=== PATIENT | male | born 1950 | race Caucasian/White ===

== ENCOUNTER → 2016-12-17 | Outpatient (CLI) | payer MEDICARE ==
--- NOTE | 2016-12-17 16:34 | US ---
EXAMINATION TYPE: US scrotum with doppler. Grayscale and color Doppler Duplex imaging performed of t jewel scrotum. DATE OF EXAM: 12/17/2016 4:06 PM COMPARISON: NONE CLINICAL HISTORY: Scrotum Pain N50.82. EXAM MEASUREMENTS: TESTICLES: Right Testicle: 3.5 x 2.7 x 2.8 cm Left Testicle: not identified EPIDIDYMIS HEAD: At area of right epididymis is a fluid collection measuring 4.4 x 2.2 x 3.6cm. Left not visualized Doppler performed to assess for testicular vascularity; good right color flow and waveforms are seen. There is no evidence of testicular torsion on right. Patient has extensive swelling. Scrotal sac is the size of a cantaloup. Multiple probes used to maryam w sac in its entirety. No left testicle identified. On left side is a large complex area difficult to assess with ultrasoun d. No movement with valsalva maneuver. IMPRESSION: 1. Extensive scrotal sac swelling with large complex area identified within the region of the left sc rotal sac. Underlying tumoral mass is not excluded versus infectious process. Large right-sided epidi dymal cystic lesion.
== END | disposition home or self-care (01) ==
LOC: RADUSWWP 15:30
PROVIDERS: ATTEND Family Medicine
DX: N50.89 Other specified disorders of the male genital organs (principal); N50.3 Cyst of epididymis; N50.82 Scrotal pain
CPT/HCPCS: 76870; 93975

== ENCOUNTER 2017-03-09 07:35 | Day surgery (SDC) | payer MEDICARE ==
[2017-03-02 14:25] VITALS: BMI 30.1
[~2017-03-09 07:35] MED LIST: DEXAMETHASONE SOD PHOSPHATE 10 MG/ML 1 ML VIAL IV ONE; HEPARIN SODIUM,PORCINE 5,000 UNIT/ML 1 ML VIAL SQ ONE; LACTATED RINGERS 1,000 ML IV SCH; LIDOCAINE 1% 20 ML VIAL (10MG/ML) FOR IV START INTRADERMA PRN; ONDANSETRON 4 MG/2 ML VIAL IVP ONE; SCOPOLAMINE 1.5MG/72HR PATCH TRANSDERM ONE; ceFAZolin 2 GM in SODIUM CHLORIDE 0.9% 100 ML IVPB ONE
--- NOTE | 2017-03-09 09:00 | P.GSHP ---
History of Present Illness H&P Date: 03/09/17 Chief Complaint: Incarcerated left inguinal hernia This a C6-year-old male who presents today for open repair of incarcerated left femoral hernia. Patient's had the hernia for approximately 10 years. Patient states hernias a large in size. He has some pain in the left groin. Past Medical History Past Medical History: Hypertension Additional Past Medical History / Comment(s): Current left inguinal hernia, left testicle swelling and back pain and sore throat. Pt states had chest pain last middle of last week but none since. States he did not see a Dr regarding the pain, denies any previous chest pain or heart problems. Advised to go to nearest ER or call 911 if he has chest pain again. History of Any Multi-Drug Resistant Organisms: None Reported Past Surgical History: Hernia Repair, Tonsillectomy Additional Past Surgical History / Comment(s): Left eye surgery. Additional Past Anesthesia/Blood Transfusion Reaction / Comment(s): States took a long time to wake up after last surgery. Past Psychological History: Anxiety Smoking Status: Former smoker Past Alcohol Use History: None Reported Additional Past Alcohol Use History / Comment(s): Smoked 3 PPD from [id number]. Past Drug Use History: None Reported - Past Family History Mother Family Medical History: Unable to Obtain Medications and Allergies Home Medications Medication Instructions Recorded Confirmed Type Doxazosin [Cardura] 2 mg PO HS 07/10/16 03/09/17 History Enalapril [Vasotec] 20 mg PO BID 07/10/16 03/09/17 History HYDROcodone/APAP 5-325MG [[place] 1 tab PO DAILY PRN 07/10/16 03/09/17 History 5-325] LORazepam [Ativan] 0.5 mg PO DAILY PRN 07/10/16 03/09/17 History Mylanta 30 ml PO BID PRN 03/02/17 03/09/17 History guaiFENesin SYRUP 100MG/5ML 0 mg PO DAILY PRN 03/02/17 03/09/17 History [Robitussin] Allergies Allergy/AdvReac Type Severity Reaction Status Date / Time No Known Allergies Allergy Unverified 03/09/17 08:08 Surgical - Exam Vital Signs Temp Pulse Resp BP Pulse Ox 97.9 F 89 16 129/83 95 03/09/17 08:13 03/09/17 08:13 03/09/17 08:13 03/09/17 08:13 03/09/17 08:13 - General well developed, no distress - Eyes PERRL - ENT normal pinna - Neck no masses - Respiratory normal expansion - Cardiovascular Rhythm: regular - Abdomen Abdomen: soft, non tender Hernia: inguinal (Large incarcerated left inguinal hernia) Assessment and Plan Plan: Arch incarcerated left femoral hernia. Patient will undergo repair. The patient's family understands the risk of possible orchiectomy.
[2017-03-09] MEDS ORDERED: PHENYLEPHRINE-0.9% NACL SYG 1 MG/10 ML SYRINGE ONE (09:27)
[2017-03-09] MEDS ORDERED: KETOROLAC 30 MG/ML 1 ML VIAL ONE (09:27)
[2017-03-09] MEDS ORDERED: MIDAZOLAM 2 MG/2 ML VIAL ONE (09:27)
[2017-03-09] MEDS ORDERED: GLYCOPYRROLATE 0.2 MG/ML 2 ML VIAL ONE (09:27)
[2017-03-09] MEDS ORDERED: SUCCINYLCHOLINE CHLORIDE 100 MG/5 ML SYR IV ONE (09:27)
[2017-03-09] MEDS ORDERED: LIDOCAINE 1% INJ 10MG/ML (20 ML MDV) ONE (09:27)
[2017-03-09] MEDS ORDERED: PROPOFOL 10 MG/ML 20 ML VIAL IV ONE (09:27)
[2017-03-09] MEDS ORDERED: fentaNYL (PF) 50 MCG/ML 2 ML AMP ONE (09:27)
[2017-03-09] MEDS ORDERED: ROCURONIUM BROMIDE 10 MG/ML 10 ML VIAL IV ONE (09:27)
[2017-03-09] MEDS ORDERED: NEOSTIGMINE 1 MG/ML 10 ML VIAL ONE (09:27)
[2017-03-09] MEDS ORDERED: BUPIVACAINE (PF) 0.25% 30 ML VIAL SQ ONE (09:46)
[2017-03-09] MEDS ORDERED: LACTATED RINGERS 1,000 ML IV ONE ×2 (10:02→11:08)
--- NOTE | 2017-03-09 10:43 | P.OP ---
Date of Procedure: 03/09/17 Preoperative Diagnosis: Incarcerated left inguinal hernia Postoperative Diagnosis: Incarcerated left inguinal hernia Procedure(s) Performed: Repair of incarcerated left inguinal hernia Left orchiectomy Implants: Anesthesia: GODWINA Surgeon: Abilio Tony Estimated Blood Loss (ml): 10 Pathology: other (Left testicle) Condition: stable Disposition: PACU Indications for Procedure: Operative Findings: Description of Procedure: The patient was placed on the operating table in the supine position. He had a very large incarcerated left femoral hernia. A standard skin incision was made over the left internal ring. Then using blunt and sharp dissection with cautery the fascia was exposed. A julianna in the fascia and made a 15 blade and the fascia was opened with pair Metzenbaum scissors. The hernia was then brought up in the wound. The hernia extended down into the scrotum. The hernia was dissected free from the scrotal sac. At this point due to the very large size of the hernia appears decided perform an orchiectomy. The cord structures were divided off the hernia sac. And then clamped with a Dede clamp and ligated with 0 silk ties. The specimen was then sent to pathology. The transversalis fascia was opened and then the entire hernia sac was placed back into the peritoneal cavity. A piece of ventral light mesh was then fashioned into a mushroom plug and then the plug was placed into the hernia defect area the transverse fascia was closed to the shelving edge of the inguinal ligament using 0 Ethibond suture. The superior mesh was placed over top of the TRAM cells fascia and then the fascia external oblique was then closed using 0 Vicryl suture. There is no bleeding seen. Chloe's fascia was closed with 2-0 Vicryl suture skin was closed interrupted 3-0 Monocryl suture. Dermabond was applied. Patient was sent to recovery in stable condition.
[2017-03-09] MEDS ORDERED: ONDANSETRON 4 MG/2 ML VIAL IVP ONE (10:58)
[2017-03-09 11:00] VITALS: TEMP 97
[2017-03-09] MEDS: HYDROmorphone 1 MG/ML 1 ML SYRINGE IVP PRN ×4 (11:01→11:39)
[2017-03-09 11:10] VITALS: RESP 16
[2017-03-09] MEDS ORDERED: HYDROcodone/APAP 7.5-325MG 1 EACH TAB PO ONE (12:20)
[2017-03-09 13:42] VITALS: BP 108/64; PULSE 88
== END 2017-03-09 13:59 | disposition home or self-care (01) ==
LOC: OR 07:35
PROVIDERS: ATTEND Surgery
DX: K40.30 Unilateral inguinal hernia, with obstruction, without gangrene, not specified as recurrent (principal); I10 Essential (primary) hypertension; F41.9 Anxiety disorder, unspecified; K21.9 Gastro-esophageal reflux disease without esophagitis; Z79.899 Other long term (current) drug therapy; Z87.891 Personal history of nicotine dependence
CPT/HCPCS: 54520; 49507; C1781; J2250; J1644; J1100; J2710; J0690; J2405; J2001; J3010; J1885; J1170; J2370; J0330; J2704

== ENCOUNTER 2020-04-22 13:07 | Inpatient (IN) | payer MEDICARE ==
[2020-04-22] MEDS ORDERED: ACETAMINOPHEN TAB 325 MG TAB PO PRN (13:18)
[2020-04-22] MEDS ORDERED: NALOXONE 0.4 MG/ML 1 ML VIAL IV PRN (13:18)
--- NOTE | 2020-04-22 13:24 | ED ---
General Adult HPI - General Stated complaint: Afib RVR Time Seen by Provider: 04/22/20 13:12 Source: patient, EMS, RN notes reviewed, old records reviewed - History of Present Illness Initial comments: 69-year-old male presenting as transfer from outside facility with new-onset atrial fibrillation with rapid ventricular response. Patient states he was at home, began feeling some palpitations as well as lightheadedness and right lateral chest pain. He presented to an outside emergency department and was found to be in atrial fibrillation with RVR. He has no previous history of CAD or arrhythmia. He was started on heparin and Cardizem and transferred for further evaluation and treatment. Patient has no new complaints time my evaluation. No central chest pain or dyspnea. Denies lower extremity pain or swelling. Denies abdominal pain nausea vomiting. - Related Data Home Medications Medication Instructions Recorded Confirmed Doxazosin [Cardura] 2 mg PO HS 07/10/16 03/09/17 Enalapril [Vasotec] 20 mg PO BID 07/10/16 03/09/17 HYDROcodone/APAP 5-325MG [[place] 1 tab PO DAILY PRN 07/10/16 03/09/17 5-325] LORazepam [Ativan] 0.5 mg PO DAILY PRN 07/10/16 03/09/17 Mylanta 30 ml PO BID PRN 03/02/17 03/09/17 guaiFENesin SYRUP 100MG/5ML 0 mg PO DAILY PRN 03/02/17 03/09/17 [Robitussin] Previous Rx's Medication Instructions Recorded HYDROcodone/APAP 7.5-325MG [[place] 1 each PO Q4H PRN #60 tab 03/09/17 7.5] Allergies Allergy/AdvReac Type Severity Reaction Status Date / Time No Known Allergies Allergy Verified 04/22/20 13:21 Review of Systems ROS Statement: Those systems with pertinent positive or pertinent negative responses have been documented in the HPI. ROS Other: All systems not noted in ROS Statement are negative. Past Medical History Past Medical History: Hypertension Additional Past Medical History / Comment(s): Current left inguinal hernia, left testicle swelling and back pain and sore throat. Pt states had chest pain last middle of last week but none since. States he did not see a Dr regarding the pain, denies any previous chest pain or heart problems. Advised to go to nearest ER or call 911 if he has chest pain again. History of Any Multi-Drug Resistant Organisms: None Reported Past Surgical History: Hernia Repair, Tonsillectomy Additional Past Surgical History / Comment(s): Left eye surgery. Additional Past Anesthesia/Blood Transfusion Reaction / Comment(s): States took a long time to wake up after last surgery. Past Psychological History: Anxiety Past Alcohol Use History: None Reported Additional Past Alcohol Use History / Comment(s): Smoked 3 PPD from [id number]. Past Drug Use History: None Reported - Past Family History Mother Family Medical History: Unable to Obtain General Exam General appearance: alert, in no apparent distress Head exam: Present: atraumatic, normocephalic Eye exam: Present: normal appearance, PERRL Neck exam: Present: normal inspection Respiratory exam: Present: normal lung sounds bilaterally. Absent: respiratory distress, wheezes Cardiovascular Exam: Present: regular rate, normal rhythm GI/Abdominal exam: Present: soft. Absent: distended, tenderness, guarding, rebound Extremities exam: Present: normal inspection, normal capillary refill. Absent: pedal edema Neurological exam: Present: alert, oriented X3, CN II-XII intact. Absent: motor sensory deficit Psychiatric exam: Present: normal affect, normal mood Skin exam: Present: warm, dry, intact. Absent: cyanosis, diaphoretic Course Vital Signs 04/22/20 13:13 Temperature 97.3 F L Pulse Rate 96 Respiratory 18 Rate Blood Pressure 131/83 O2 Sat by Pulse 96 Oximetry EKG Findings - EKG Comments: EKG Findings:: EKG: Sinus rhythm with PVC left axis deviation, rate of 93, WA interval 138, QRS duration 84 and a QTC 455, no ST segment elevation. Medical Decision Making - Medical Decision Making 69-year-old male with new onset atrial fibrillation with RVR. Patient was placed on heparin and Cardizem prior to transfer. He converted to sinus rhythm and remained in sinus rhythm during transport. She has no complaints the time my evaluation. Laboratory testing reviewed from outside facility, patient had a white blood cell count 7, hemoglobin 15.2. Sodium 139, potassium 3.9 creatinine 1.3 troponin was negative. Patient will be admitted to Dr. Man with cardiology on consult. Critical Care Time Critical Care Time: Yes Disposition Clinical Impression: New onset atrial fibrillation, Atrial fibrillation with RVR Disposition: ADMITTED IP TO THIS HOSP Condition: Stable Is patient prescribed a controlled substance at d/c from ED?: No Referrals: Eliseo Man MD [Primary Care Provider] - 1-2 days Decision to Admit Reason: Admit from EC Decision Date: 04/22/20 Decision Time: 13:24
[2020-04-22] MEDS ORDERED: DILTIAZEM 125 MG in SODIUM CHLORIDE 0.9% 100 ML IV SCH (13:30)
[2020-04-22] MEDS ORDERED: HEPARIN SOD,PORK IN 0.45% NACL 25,000 UNIT in 0.45% NACL 1 250ML.BAG IV SCH (13:30)
[2020-04-22] MEDS ORDERED: NITROGLYCERIN SL TABS 0.4 MG TAB SUBLINGUAL ONE (16:50)
[2020-04-22] MEDS ORDERED: NITROGLYCERIN SL TABS 0.4 MG TAB SUBLINGUAL PRN (16:53)
[2020-04-22] MEDS: NITROGLYCERIN OINT 1 INCH/GM PACKET TOPICAL SCH ×2 (19:46→23:43)
[2020-04-22] MEDS ORDERED: CYCLOBENZAPRINE 10 MG TAB PO PRN (19:56)
[2020-04-22] MEDS ORDERED: ZOLPIDEM 10 MG TAB PO PRN (19:56)
[2020-04-22] MEDS ORDERED: SULFACETAMIDE SOD 10% OPHTH DROPS 15 ML BTL BOTH EYES PRN (19:56)
[2020-04-22] MEDS ORDERED: HYDROcodone/APAP 5-325MG 1 EACH TAB PO PRN (19:56)
--- NOTE | 2020-04-22 21:02 | HP ---
HISTORY AND PHYSICAL CHIEF COMPLAINT: Syncope. HISTORY OF PRESENT ILLNESS: This is the first known admission for this 69-year-old white male. He has a history of hypertension and anxiety. He apparently was home when he suddenly passed out. He was sure he passed out completely. When he came to he was weak and barely able to dial 911. He was brought in where he was found to be in new onset atrial fibrillation. He had no focal neurologic deficits, change in vision or hearing, chest pain, diaphoresis, shortness of breath, abdominal pain, nausea, vomiting, diarrhea, etc. Past medical history, family history and personal and social history revealed that he is not allergic to any medication. He takes vitamin D once a month, cyclobenzaprine 10 mg t.i.d. p.r.n., Cardura 4 mg at h.s., Vicodin 5/325 q6 p.r.n., lorazepam 0.5 t.i.d. p.r.n., losartan 50 mg once a day, sulfacetamide 10% eyedrops both eyes q.i.d. and zolpidem 10 mg at h.s. He does not smoke. He does not drink alcohol excessively. PHYSICAL EXAM: Blood pressure is 131/83 with a pulse of 84 and irregularly, irregular. Respirations were 17. He is afebrile. In general, appeared to be well developed, well nourished, no acute distress. Skin color is normal, skin is warm and dry. Lymph nodes not enlarged. Head, ears, eyes, nose, mouth, and throat were normal. Carotids are normal. There are no bruits. The chest is clear to auscultation and percussion. Cardiac exam demonstrated what sounded like a regular rhythm with no S3 or S4. There were no murmurs. Abdomen is soft, nontender without visceromegaly or masses. Bowel sounds were present. Extremities are normal and neurologically he is intact. He is admitted to the hospital with diagnoses: 1. Syncopal episode. 2. New onset atrial fibrillation. 3. History of hypertension. 4. History of anxiety. 5. Elevated troponin. PLAN: 1. Bed rest. 2. Anticoagulate. 3. Consult Cardiology. 4. Echocardiogram. MMODL / IJN: [id number] /
[2020-04-22] MEDS: LORazepam 0.5 MG TAB PO PRN (21:45)
[2020-04-22] MEDS ORDERED: HEPARIN SODIUM,PORCINE 5,000 UNIT/ML 1 ML VIAL IV PRN (21:53)
[2020-04-22] MEDS ORDERED: DOXAZOSIN 4 MG TAB PO SCH (22:00)
[2020-04-22] MEDS: LOSARTAN 50 MG TAB PO SCH (22:26)
[2020-04-23 04:05] LABS: Basophils % (A) 0 %; Eosinophils # (A) 0.2 k/uL (0-0.7); Eosinophils % (A) 2 %; HCT 40.4 % (39.0-53.0); HGB 13.5 gm/dL (13.0-17.5); Lymphocytes % (A) 21 %; MCH 30.1 pg (25.0-35.0); MCHC 33.3 g/dL (31.0-37.0); MCV 90.5 fL (80.0-100.0); Monocytes # (A) 0.6 k/uL (0-1.0); Monocytes % (A) 7 %; Neutrophils # (A) 6.3 k/uL (1.3-7.7); Neutrophils % (A) 67 %; Platelet Count 202 k/uL (150-450); RBC 4.47 m/uL (4.30-5.90); RDW 12.9 % (11.5-15.5); WBC 9.4 k/uL (3.8-10.6)
[2020-04-23 04:18] LABS: Albumin 3.5 g/dL (3.5-5.0); Calcium 8.7 mg/dL (8.4-10.2); Magnesium 2.3 mg/dL (1.6-2.3); Potassium 4.1 mmol/L (3.5-5.1); Total Bilirubin 0.7 mg/dL (0.2-1.3); Total Protein 5.9 g/dL (6.3-8.2)
[2020-04-23] MEDS: NITROGLYCERIN OINT 1 INCH/GM PACKET TOPICAL SCH (06:02)
[2020-04-23 06:46] LABS: Appearance,Urine Clear (Clear); Bilirubin,Urine Negative (Negative); Blood,Urine Large (Negative); Color,Urine Yellow; Glucose,Urine (UA) Negative (Negative); Ketones,Urine Negative (Negative); Leukocyte Esterase,Urine Trace (Negative); Mucus,Urine Many /hpf; Nitrite,Urine Negative (Negative); Protein,Urine Trace (Negative); RBC,Urine >182 /hpf (0-5); Specific Gravity,Urine 1.023 (1.001-1.035); Sperm,Urine Few /hpf; Urobilinogen,Urine <2.0 mg/dL (<2.0); WBC,Urine 17 /hpf (0-5)
[2020-04-23] MEDS ORDERED: DOXAZOSIN 4 MG TAB PO SCH (09:00)
[2020-04-23] MEDS ORDERED: LOSARTAN 50 MG TAB PO SCH (09:00)
[2020-04-23] MEDS ORDERED: APIXABAN 5 MG TAB PO SCH (09:30)
[2020-04-23] MEDS ORDERED: HEPARIN SODIUM,PORCINE 5,000 UNIT/ML 1 ML VIAL IV PRN (09:41)
--- NOTE | 2020-04-23 10:37 | P.CRDCN ---
History of Present Illness Consult date: 04/23/20 History of present illness: CHIEF COMPLAINT: A. fib with RVR HISTORY OF PRESENT ILLNESS: 69-year-old male with a history of hypertension who presented to [facility] with a chief complaint of palpitations and feeling like she was going to pass out. Patient was found to be in A. fib with RVR and was transferred to [facility] for further evaluation. Patient does not follow up outpatient with a lighting specialist. Patient examined this morning at bedside. Patient states he was doing laundry yesterday and began to feel dizzy. He felt like he was going to pass out so he walked to his table and sat down. Patient reports feeling palpitations yesterday as well. He is complaining of mild right lateral chest pain and right upper quadrant abdominal pain. Patient was placed on IV heparin and an IV Cardizem drip prior to transfer. Patient converted to sinus rhythm in route to [facility]. DIAGNOSTICS: EKG reveals A. fib with RVR. Repeat EKG reveals sinus rhythm Laboratory data: WBC 9.4. Hemoglobin 13.5. Platelet count 202. Sodium 137. Potassium 4.1. BUN 30. Creatinine 1.37. Magnesium 2.3. Troponin 0.044. 0.036. Current home cardiac medications include Cozaar 50 mg daily REVIEW OF SYSTEMS: CONSTITUTIONAL: Denies fever or chills. HEENT: Denies blurred vision, vision changes, or eye pain. Denies hemoptysis CARDIOVASCULAR: Denies orthopnea, PND. Reports palpitations. Reports right lateral chest pain. RESPIRATORY: No shortness of breath. GASTROINTESTINAL: Denies right upper quadrant abdominal pain. Denies nausea or vomiting. HEMATOLOGIC: Denies bleeding disorders. GENITOURINARY: Denies any blood in urine. SKIN: Denies pruitis. Denies rash. PHYSICAL EXAM: VITAL SIGNS: Reviewed. GENERAL: Well-developed in no acute distress. HEENT: Head is normocephalic. Pupils are equal, round. Sclerae anicteric. Mucous membranes of the mouth are moist. Neck supple. No JVD or thyromegaly LUNGS: Respirations even and unlabored. Lungs essentially clear to auscultation bilaterally. HEART: Regular rate and rhythm. S1 and S2 heard. ABDOMEN: Soft. Nondistended. Mild tenderness upon palpation of right upper abdominal quadrant and right lateral chest wall. EXTREMITIES: Normal range of motion. No clubbing or cyanosis. Peripheral pulses intact. No lower extremity edema NEUROLOGIC: Awake and alert. Oriented x 3. ASSESSMENT: Presyncope, lightheadedness New-onset paroxysmal A. fib with RVR, since converted to sinus rhythm Elevated troponins, may be secondary to atrial fibrillation and acute kidney injury Acute kidney injury Hypertension Former nicotine dependence, patient quit smoking in 2000 PLAN: Discontinue IV heparin Begin Eliquis Begin metoprolol Obtain 2-D echo to assess cardiac structure and function. If LV wall abnormalities visualized on echocardiogram will proceed with cardiac catheterization. If not, patient may follow up outpatient for stress testing. Check orthostatic blood pressures Nurse practitioner note has been reviewed by physician. Signing provider agrees with the documented findings, assessment, and plan of care. Past Medical History Past Medical History: Hypertension Additional Past Medical History / Comment(s): Current left inguinal hernia, left testicle swelling and back pain and sore throat. Pt states had chest pain last middle of last week but none since. States he did not see a Dr regarding the pain, denies any previous chest pain or heart problems. Advised to go to nearest ER or call 911 if he has chest pain again. History of Any Multi-Drug Resistant Organisms: None Reported Past Surgical History: Hernia Repair, Tonsillectomy Additional Past Surgical History / Comment(s): Left eye surgery. Additional Past Anesthesia/Blood Transfusion Reaction / Comment(s): States took a long time to wake up after last surgery. Past Psychological History: Anxiety Smoking Status: Former smoker Past Alcohol Use History: None Reported Additional Past Alcohol Use History / Comment(s): Smoked 3 PPD from [id number]. Past Drug Use History: None Reported - Past Family History Mother Family Medical History: Cancer Additional Family Medical History / Comment(s): BLADDER [place] / [place] Father History Unknown: Yes Medications and Allergies Home Medications Medication Instructions Recorded Confirmed Type HYDROcodone/APAP 5-325MG [[place] 0.5 tab PO BID PRN 07/10/16 04/22/20 History 5-325] LORazepam [Ativan] 0.5 mg PO DAILY PRN 07/10/16 04/22/20 History Cyclobenzaprine [Flexeril] 10 mg PO TID PRN 04/22/20 04/22/20 History Doxazosin Mesylate [Cardura] 4 mg PO HS 04/22/20 04/22/20 History Ergocalciferol (Vitamin D2) 50,000 unit PO Q30D 04/22/20 04/22/20 History [Drisdol] Losartan Potassium [Cozaar] 50 mg PO HS 04/22/20 04/22/20 History Sulfacetamide 10% Ophth Soln 2 drops BOTH EYES QID PRN 04/22/20 04/22/20 History [Bleph-10] Zolpidem [Ambien] 10 mg PO HS PRN 04/22/20 04/22/20 History Allergies Allergy/AdvReac Type Severity Reaction Status Date / Time No Known Allergies Allergy Verified 04/22/20 14:12 Physical Exam Vitals: Vital Signs Temp Pulse Pulse Resp BP BP Pulse Ox 04/23/20 08:00 97.9 F 81 17 99/58 97 04/23/20 04:00 77 18 99/60 95 04/23/20 00:00 98.6 F 79 18 92/62 96 04/22/20 20:00 97.3 F L 79 18 117/73 95 04/22/20 16:00 97.3 F L 100 18 128/73 97 04/22/20 14:04 97.3 F L 100 18 128/73 97 04/22/20 14:00 87 18 121/85 97 04/22/20 13:30 84 17 131/83 96 04/22/20 13:17 96 04/22/20 13:13 97.3 F L 96 18 131/83 96 Intake and Output 04/22/20 04/23/20 04/23/20 22:59 06:59 14:59 Intake Total 306.833 79.587 Output Total 200 600 Balance 106.833 -520.413 Intake: Intake, IV Titration 81.833 79.587 Amount Heparin Sod,Pork in 0.45% 81.833 79.587 NaCl 25,000 unit In 0.45 % NaCl 1 250ml.bag @ 10. 159 UNITS/KG/HR 10 mls/hr IV .Q24H [facility] Rx#: [id number] Oral 225 Output: Urine 200 600 Other: Voiding Method Urinal Urinal # Voids 1 Weight 93.6 kg Results 04/23/20 03:37 04/23/20 03:37 Cardiac Enzymes 04/22/20 04/22/20 04/23/20 Range/Units 15:35 17:49 03:37 AST 29 (17-59) U/L Troponin I 0.044 H* 0.036 H* (0.000-0.034) ng/mL Coagulation 04/22/20 04/23/20 Range/Units 19:18 03:37 APTT 41.8 H 72.1 H (22.0-30.0) sec CBC 04/23/20 Range/Units 03:37 WBC 9.4 (3.8-10.6) k/uL RBC 4.47 (4.30-5.90) m/uL Hgb 13.5 (13.0-17.5) gm/dL Hct 40.4 (39.0-53.0) % Plt Count 202 (150-450) k/uL Comprehensive Metabolic Panel 04/23/20 Range/Units 03:37 Sodium 137 (137-145) mmol/L Potassium 4.1 (3.5-5.1) mmol/L Chloride 106 (98-107) mmol/L Carbon Dioxide 23 (22-30) mmol/L BUN 30 H (9-20) mg/dL Creatinine 1.37 H (0.66-1.25) mg/dL Glucose 115 H (74-99) mg/dL Calcium 8.7 (8.4-10.2) mg/dL AST 29 (17-59) U/L ALT 25 (4-49) U/L Alkaline Phosphatase 55 (38-126) U/L Total Protein 5.9 L (6.3-8.2) g/dL Albumin 3.5 (3.5-5.0) g/dL Current Medications Generic Name Dose Route Start Last Admin Trade Name Freq PRN Reason Stop Dose Admin Acetaminophen 650 mg 04/22/20 13:18 Tylenol Tab PO Q6HR PRN Mild Pain or Fever > 100.5 Hydrocodone Bitart/Acetaminophen 0.5 each 04/22/20 19:56 [place] 5-325 PO BID PRN Pain Cyclobenzaprine HCl 10 mg 04/22/20 19:56 Flexeril PO TID PRN Muscle Pain Doxazosin Mesylate 4 mg 04/23/20 21:00 Cardura PO HS ALEJANDRO Heparin Sodium (Porcine) 0 unit 04/22/20 21:53 04/22/20 22:27 Heparin IV 2,450 unit PER PROTOCOL PRN Administration Low PTT Protocol Heparin Sodium/Sodium Chloride 250 mls @ 10 mls/hr 04/22/20 13:30 04/23/20 04:28 25,000 unit/ Sodium Chloride IV 10.159 units/kg/hr .Q24H ALEJANDRO 10 mls/hr Titration Protocol 10.159 UNITS/KG/HR Lorazepam 0.5 mg 04/22/20 19:56 04/22/20 21:45 Ativan PO 0.5 mg DAILY PRN Administration Anxiety Losartan Potassium 50 mg 04/22/20 22:00 04/22/20 22:26 Cozaar PO 50 mg HS ALEJANDRO Administration Naloxone HCl 0.2 mg 04/22/20 13:18 Narcan IV Q2M PRN Opioid Reversal Nitroglycerin 0.4 mg 04/22/20 16:53 Nitrostat SUBLINGUAL Q5M PRN Chest Pain Nitroglycerin 0.5 inch 04/22/20 19:30 04/23/20 06:02 Nitro-Bid Oint TOPICAL 0.5 inch Q6HR ALEJANDRO Administration Sulfacetamide Sodium 2 drops 04/22/20 19:56 Bleph-10 BOTH EYES QID PRN EYE INFECTIONS Zolpidem Tartrate 10 mg 04/22/20 19:56 04/22/20 23:43 Ambien PO 10 mg HS PRN Administration Insomnia Intake and Output 04/22/20 04/23/20 04/23/20 22:59 06:59 14:59 Intake Total 306.833 79.587 Output Total 200 600 Balance 106.833 -520.413 Intake: Intake, IV Titration 81.833 79.587 Amount Heparin Sod,Pork in 0.45% 81.833 79.587 NaCl 25,000 unit In 0.45 % NaCl 1 250ml.bag @ 10. 159 UNITS/KG/HR 10 mls/hr IV .Q24H [facility]LE[facility] Rx#: [id number] Oral 225 Output: Urine 200 600 Other: Voiding Method Urinal Urinal # Voids 1 Weight 93.6 kg 04/23/20 03:37 04/23/20 03:37
--- NOTE | 2020-04-23 10:56 | ECHOF ---
Referral Reason:afib RVR, lv function MEASUREMENTS -------- HEIGHT: 172.7 cm WEIGHT: 93.4 kg BP: 99/58 RVIDd: 2.9 cm (< 3.3) IVSd: 1.4 cm (0.6 - 1.1) LVIDd: 4.8 cm (3.9 - 5.3) LVPWd: 1.4 cm (0.6 - 1.1) IVSs: 2.0 cm LVIDs: 2.5 cm LVPWs: 1.9 cm LA Diam: 3.3 cm (2.7 - 3.8) LAESV Index (A-L): 21.81 ml/m Ao Diam: 4.3 cm (2.0 - 3.7) AV Cusp: 2.8 cm (1.5 - 2.6) MV EXCURSION: 12.169 mm (> 18.000) MV EF SLOPE: 26 mm/s (70 - 150) EPSS: 0.8 cm MV E Anirudh: 0.57 m/s MV DecT: 243 ms MV A Anirudh: 0.85 m/s MV E/A Ratio: 0.67 AR PHT: 1329 ms FINDINGS -------- Sinus rhythm. This was a technically adequate study. The left ventricular size is normal. There is moderate concentric left ventricular hypertrophy. O verall left ventricular systolic function is normal with, an EF between 60 - 65 %. The right ventricle is normal in size. Normal LA size by volume 22+/-6 ml/m2. The right atrium is normal in size. Interatrial and interventricular septum intact. Aortic valve is trileaflet and is mildly thickened. There is mild aortic regurgitation. The mitral valve is normal. The tricuspid valve appears structurally normal. There is no pulmonic regurgitation present. The aortic root is dilated measuring 4.3cm. Normal inferior vena cava with normal inspiratory collapse consistent with estimated right atrial pre ssure of 5 mmHg. There is no pericardial effusion. CONCLUSIONS -------- 1. The left ventricular size is normal. 2. There is moderate concentric left ventricular hypertrophy. 3. Overall left ventricular systolic function is normal with, an EF between 60 - 65 %. 4. Aortic valve is trileaflet and is mildly thickened. 5. There is mild aortic regurgitation. 6. The aortic root is dilated measuring 4.3cm. 7. There is no pericardial effusion. EQUIP TECH: Adela Adams RDCS
[2020-04-23] MEDS: HEPARIN SOD,PORK IN 0.45% NACL 25,000 UNIT in 0.45% NACL 1 250ML.BAG IV SCH (11:40)
[2020-04-23] MEDS: METOPROLOL SUCCINATE (ER) 25 MG TAB.ER.24H PO SCH (13:05)
[2020-04-23] MEDS: LOSARTAN 50 MG TAB PO SCH (20:00)
[2020-04-23] MEDS: DOXAZOSIN 4 MG TAB PO SCH (20:00)
--- NOTE | 2020-04-23 20:02 | CT ---
EXAMINATION TYPE: CT abdomen pelvis w con DATE OF EXAM: 04/23/2020 COMPARISON: NONE HISTORY: 69-year-old male with abdominal pain, hematuria TECHNIQUE: Contiguous axial scanning of the abdomen and pelvis following administration of 100 ml Iso silvia 300 IV contrast. Delayed images through the kidneys and coronal/sagittal reconstructions perform ed. CT DLP: 1512.4 mGycm Automated exposure control for dose reduction was used. FINDINGS: Aneurysmal aortic root at 4.3 cm. Heart normal size without pericardial effusion. Areas of dependent atelectasis. Nonspecific 4 mm right middle lobe pulmonary nodule, axial image 2. Hiatal hernia containing moderate mediastinal fat and a small portion of the gastric fundus. A few scattered subcentimeter hypodensities within the liver, too small for accurate CT characterizat ion, likely small cysts. Gallbladder, adrenal glands, right kidney, spleen, and pancreas appear within normal limits. Few prominent fluid-filled small bowel loops in the upper midabdomen measuring up to 2.7 cm. Extra renal pelvis on the left. No dilated small bowel, free fluid, or free air. Small caliber normal appendix. Mild stool burden. Sigmoid diverticulosis. No pericolonic inflammatory change. Mild circumferential bladder wall thickening. Prostatomegaly at 5.4 cm wide with patchy heterogeneous enhancement of the prostate gland. Left-sided pelvic phleboliths. No abnormal fluid collection in th e pelvis or pelvic lymphadenopathy. Bones: Mild degenerative change of the hips. Degenerative change of the SI joints. [facility] within the lo wer thoracic spine. Grade 1 anterolisthesis L3-L4 and L4-L5 with hypertrophic facet arthropathy. IMPRESSION: 1. MILD CIRCUMFERENTIAL BLADDER WALL THICKENING COULD REPRESENT CHRONIC BLADDER HYPERTROPHY OR CYSTIT IS. CLINICALLY CORRELATE. 2. PROSTATOMEGALY OF 5.4 CM WIDE WITH PATCHY HETEROGENEOUS ENHANCEMENT. CORRELATE WITH PSA VALUES AND PHYSICAL EXAM TO EXCLUDE ANY FOCI OF UNDERLYING PROSTATE CANCER. 3. NO NEPHROLITHIASIS OR HYDRONEPHROSIS. 4. SIGMOID DIVERTICULOSIS WITHOUT ACUTE DIVERTICULITIS. 5. HIATAL HERNIA CONTAINING MODERATE MESENTERIC FAT AND A SMALL PORTION OF THE GASTRIC FUNDUS. 6. A 4 MM RIGHT MIDDLE LOBE PULMONARY NODULE. SIX-MONTH FOLLOW-UP CT CHEST RECOMMENDED TO REASSESS AN D ALSO TO SURVEY THE REMAINDER OF THE LUNGS. 7. INCIDENTAL ANEURYSMAL AORTIC ROOT AT 4.3 CM.
[2020-04-23] MEDS: LORazepam 0.5 MG TAB PO PRN (21:35)
--- NOTE | 2020-04-24 00:34 | PN ---
PROGRESS NOTE DATE OF SERVICE: 04/23/2020 CHIEF COMPLAINT: Syncope and new onset atrial fibrillation. HISTORY OF PRESENT ILLNESS: This gentleman has developed gross, painful hematuria. He has dysuria. He has had no fever or chills. PHYSICAL EXAMINATION: Chest is clear. Cardiac exam is normal. Abdomen is soft, nontender. Extremities are normal. IMPRESSION: 1. Syncope. 2. New onset atrial fibrillation. 3. Hematuria with dysuria. PLAN: 1. Culture of the urine. 2. CT of the abdomen and pelvis. 3. Await for further studies tomorrow. If his CT of the kidneys is normal, he will require cystoscopy. MMODL / IJN: [id number] /
[2020-04-24 08:11] LABS: Basophils % (A) 0 %; Eosinophils # (A) 0.2 k/uL (0-0.7); Eosinophils % (A) 3 %; HCT 40.4 % (39.0-53.0); HGB 13.3 gm/dL (13.0-17.5); Lymphocytes # (A) 1.9 k/uL (1.0-4.8); Lymphocytes % (A) 23 %; MCHC 32.9 g/dL (31.0-37.0); MCV 91.2 fL (80.0-100.0); Mean Platelet Volume 7.8; Monocytes # (A) 0.5 k/uL (0-1.0); Monocytes % (A) 6 %; Neutrophils # (A) 5.4 k/uL (1.3-7.7); Neutrophils % (A) 66 %; Platelet Count 170 k/uL (150-450); RBC 4.43 m/uL (4.30-5.90); RDW 12.9 % (11.5-15.5); WBC 8.2 k/uL (3.8-10.6)
[2020-04-24] MEDS: METOPROLOL SUCCINATE (ER) 25 MG TAB.ER.24H PO SCH (08:30)
[2020-04-24] MEDS: HEPARIN SOD,PORK IN 0.45% NACL 25,000 UNIT in 0.45% NACL 1 250ML.BAG IV SCH (08:37)
--- NOTE | 2020-04-24 16:16 | PN ---
PROGRESS NOTE CHIEF COMPLAINT: Syncopal episode and atrial fibrillation. HISTORY OF PRESENT ILLNESS: This gentleman is doing well. He has had no shortness of breath, chest pain, etc. Vital signs are normal. Studies have indicated that he has a small abdominal aortic aneurysm. He also has thickening of the bladder wall which may be related to his hematuria. There is also a small pulmonary nodule seen and this will be followed up in 6 months. PHYSICAL EXAMINATION: His chest is clear and the cardiac exam is normal. The abdomen is soft and nontender. Extremities are normal. IMPRESSION: 1. Syncopal episode. 2. New onset atrial fibrillation. 3. History of hypertension. 4. Abdominal aortic aneurysm. 5. Hematuria. 6. Pulmonary nodule. PLAN: Further cardiac studies are planned for today. He may be able to be discharged soon. He will require cystoscopy eventually. MMODL / IJN: [id number] /
--- NOTE | 2020-04-24 17:54 | P.PN ---
Subjective This is Mery Liu PA-C dictating a progress note on this patient The patient was interviewed and examined by me as well as by Dr. Miller Case discussed with Dr. Miller and he agrees with the plan of care HPI/interval history Patient is 69-year-old male with a history of hypertension who presented with atrial fibrillation with RVR. He was started on IV Cardizem and developed hematuria therefore it was discontinued. He has not had any further hematuria. Today he is in sinus rhythm. Patient seen and examined resting in bed. Co ntinues to complain of dyspnea on and off. He had some dizziness this morning. No syncope. He also is complaining of chest discomfort after taking the Lopressor. EKG shows no acute changes. EXAMINATION Patient is afebrile, pulse in the 80s, respirations 18, blood pressure 120/72, oxygen saturation 96% on 2 L nasal cannula On exam his heart is regular, no audible murmurs lungs clear to auscultation bilaterally No elevated JVD No lower extremity edema REVIEW OF LABS, ECG WBC 8.2, hemoglobin 13.3, platelet 170, potassium 4.1, BUN 30, creatinine 1.37, magnesium 2.3 Echocardiogram shows moderate LVH, EF 60-65 IMPRESSION / ASSESSMENT: #1 symptomatic atrial fibrillation with RVR , currently in sinus rhythm, anticoagulation was on hold due to hematuria #2 history of hypertension, controlled #3 hematuria, urology following #4 Dilated aortic root at 4.3 cm #5 KRISTINA PLAN: Per urology the anticoagulation may be restarted, per urology's recommendations he will be on heparin for 24 hours and if he has no further bleeding we will start eliquis Continue metoprolol 25 mg daily Continue losartan 50 mg daily Objective - Vital Signs Vital signs: Vital Signs Temp 98.4 F 04/24/20 16:30 Pulse 83 04/24/20 16:30 Resp 18 04/24/20 16:30 BP 128/72 04/24/20 16:30 Pulse Ox 96 04/24/20 16:30 Intake & Output 04/23/20 04/24/20 04/24/20 18:59 06:59 18:59 Intake Total 476 567.667 Output Total 900 640 300 Balance -424 -640 267.667 Weight 93.5 kg Intake: Intake, IV Titration 87.667 Amount Heparin Sod,Pork in 0.45% 87.667 NaCl 25,000 unit In 0.45 % NaCl 1 250ml.bag @ 10. 684 UNITS/KG/HR 10 mls/hr IV .Q24H [facility] Rx#: [id number] Oral 476 480 Output: Urine 900 640 300 Other: Voiding Method Urinal # Voids 1 1 # Bowel Movements 1 - Labs CBC & Chem 7: 04/24/20 07:37 04/23/20 03:37 Labs: Microbiology - Last 24 Hours (Table) 04/23/20 06:00 Urine Culture - Final Urine,Voided
--- NOTE | 2020-04-24 20:05 | P.GSCN ---
History of Present Illness Consult date: 04/24/20 Reason for Consult: Gross Hematuria History of present illness: Mr Plaza is 69 yo male admitted to the hospital with new onset Afib with RVR. He was subsequently started on heparin drip and developed gross hematuria. He denies any previous history of hematuria. He has been complaing of bladder pressure and mild dysuria the past 2-3 weeks. Denies any hx of UTIs, kidney stones or trauma. He is a former smoker. On admission he underwent a CT abdomen/pelvis which showed no upper tract pathology, of note it did show some enhancement in the prostate. This am he is off the heparin drip and his urine is clear. Review of Systems - Constitutional Reports weight loss, Denies chills, Denies fever - Cardiovascular Reports chest pain, Reports palpitations - Respiratory Denies cough, Denies 7 - Gastrointestinal Reports as per HPI - Genitourinary Reports dysuria, Reports hematuria, Denies flank pain, Denies kidney stones Past Medical History Past Medical History: Hypertension Additional Past Medical History / Comment(s): Current left inguinal hernia, left testicle swelling and back pain and sore throat. Pt states had chest pain last middle of last week but none since. States he did not see a Dr regarding the pain, denies any previous chest pain or heart problems. Advised to go to nearest ER or call 911 if he has chest pain again. History of Any Multi-Drug Resistant Organisms: None Reported Past Surgical History: Hernia Repair, Tonsillectomy Additional Past Surgical History / Comment(s): Left eye surgery. Additional Past Anesthesia/Blood Transfusion Reaction / Comm: States took a long time to wake up after last surgery. Past Psychological History: Anxiety Smoking Status: Former smoker Past Alcohol Use History: None Reported Additional Past Alcohol Use History / Comment(s): Smoked 3 PPD from [id number]. Past Drug Use History: None Reported - Past Family History Mother Family Medical History: Cancer Additional Family Medical History / Comment(s): BLADDER CA / MD Father History Unknown: Yes Medications and Allergies Home Medications Medication Instructions Recorded Confirmed Type HYDROcodone/APAP 5-325MG [[place] 0.5 tab PO BID PRN 07/10/16 04/22/20 History 5-325] LORazepam [Ativan] 0.5 mg PO DAILY PRN 07/10/16 04/22/20 History Cyclobenzaprine [Flexeril] 10 mg PO TID PRN 04/22/20 04/22/20 History Doxazosin Mesylate [Cardura] 4 mg PO HS 04/22/20 04/22/20 History Ergocalciferol (Vitamin D2) 50,000 unit PO Q30D 04/22/20 04/22/20 History [Drisdol] Losartan Potassium [Cozaar] 50 mg PO HS 04/22/20 04/22/20 History Sulfacetamide 10% Ophth Soln 2 drops BOTH EYES QID PRN 04/22/20 04/22/20 History [[place]-10] Zolpidem [Ambien] 10 mg PO HS PRN 04/22/20 04/22/20 History Allergies Allergy/AdvReac Type Severity Reaction Status Date / Time No Known Allergies Allergy Verified 04/22/20 14:12 Surgical - Exam Vital Signs Temp Pulse Resp BP Pulse Ox 97.3 F L 96 18 131/83 96 04/22/20 13:13 04/22/20 13:13 04/22/20 13:13 04/22/20 13:13 04/22/20 13:13 - General well developed, well nourished, no distress, no pain - Eyes PERRL, normal ocular movement - ENT normal nares, normal mucosa - Abdomen Abdomen: soft, non tender - Psychiatric oriented to time, oriented to person, oriented to place Results - Labs 04/24/20 07:37 04/23/20 03:37 Microbiology - Last 24 Hours (Table) 04/23/20 06:00 Urine Culture - Preliminary Urine,Voided Assessment and Plan Assessment: 69 yo male admitted with new onset of Afib, developed gross hematuria following heparin drip. No previous hx of hematuria. CT abd/pelvis showed no upper tract pathology. Hematuria resolved this am after d/c heparin drip Plan: -Ok to restart heparin drip this am -Will need cystoscopy to complete hematuria workup, this can be done as an outpatient -Urine culture given his dysuria -Will need PSA as an outpatient given the enhancement on CT.
[2020-04-24] MEDS: LOSARTAN 50 MG TAB PO SCH (21:39)
[2020-04-24] MEDS: DOXAZOSIN 4 MG TAB PO SCH (21:39)
[2020-04-24] MEDS: LORazepam 0.5 MG TAB PO PRN (21:39)
[2020-04-25] MEDS: HEPARIN SOD,PORK IN 0.45% NACL 25,000 UNIT in 0.45% NACL 1 250ML.BAG IV SCH (05:20)
[2020-04-25 06:49] LABS: Basophils % (A) 0 %; Eosinophils # (A) 0.3 k/uL (0-0.7); Eosinophils % (A) 3 %; HCT 41.2 % (39.0-53.0); HGB 13.7 gm/dL (13.0-17.5); Lymphocytes # (A) 2.1 k/uL (1.0-4.8); Lymphocytes % (A) 23 %; MCH 30.1 pg (25.0-35.0); MCHC 33.1 g/dL (31.0-37.0); MCV 90.9 fL (80.0-100.0); Mean Platelet Volume 8.2; Monocytes # (A) 0.6 k/uL (0-1.0); Monocytes % (A) 7 %; Neutrophils # (A) 5.8 k/uL (1.3-7.7); Neutrophils % (A) 65 %; Platelet Count 179 k/uL (150-450); RBC 4.54 m/uL (4.30-5.90); RDW 12.9 % (11.5-15.5); WBC 8.9 k/uL (3.8-10.6)
[2020-04-25] MEDS: METOPROLOL SUCCINATE (ER) 25 MG TAB.ER.24H PO SCH (09:41)
--- NOTE | 2020-04-25 13:14 | P.PN ---
Progress Note - Text Progress Note Date: 04/25/20 The patient's urine has remained clear since he was started on heparin this morning. The plan is to switch him to an anticoagulant prior to discharge. The source of his gross hematuria remains unclear and I explained to him that he should follow-up with later in the month as cystoscopy will be necessary for further evaluation.
--- NOTE | 2020-04-25 14:55 | P.PN ---
Subjective This is Mery Liu PA-C dictating a progress note on this patient The patient was interviewed and examined by me as well as by Dr. Miller Case discussed with Dr. Miller and he agrees with the plan of care HPI/interval history Patient is 69-year-old male with a history of hypertension who presented with atrial fibrillation with RVR. He was started on IV heparin and developed hematuria therefore was discontinued. Urology evaluated the patient and recommended outpatient follow-up and to resume anticoagulation. He was restarted on heparin and has not had any further hematuria. He remains in sinus rhythm. Patient seen and examined resting in bed. Continues to complain of a burning chest discomfort after taking the Lopressor. It is happening despite being on the Nitropaste. Nitroglycerin does not help it. He also complains of a dull pain in the right flank that radiates to his groin. States he is still short of breath. He does get dizzy" once in a while when he gets up" but denies any syncope. EXAMINATION Patient is afebrile, pulse in the 80s, respirations 20, blood pressure 120/87, oxygen saturation 95% on room air Patient seen and examined resting in bed, in no acute distress Lungs are clear to auscultation bilaterally, no wheezing rhonchi or crackles Heart is regular, no audible murmurs No tenderness to palpation across the anterior chest No JVD No lower extremity edema REVIEW OF LABS, ECG Hemoglobin 13.7 Repeat EKG while the patient was having the burning chest discomfort yesterday did not show any acute changes Echocardiogram shows moderate LVH, EF 60-65 IMPRESSION / ASSESSMENT: #1 symptomatic atrial fibrillation with RVR , currently in sinus rhythm #2 history of hypertension, controlled #3 hematuria, urology following, hemoglobin stable, no further bleeding #4 Dilated aortic root at 4.3 cm #5 KRISTINA #6 atypical chest discomfort that is not relieved by nitro, EKGs have not demonstrated any acute changes, possibly related to GI etiology PLAN: Resume eliquis, start with low-dose 2.5 mg twice a day and monitor for bleeding Try Protonix for the chest discomfort Continue Lopressor and losartan Management of flank pain and hematuria per urology Objective - Vital Signs Vital signs: Vital Signs Temp 98.0 F 04/24/20 20:00 Pulse 88 04/25/20 12:00 Resp 20 04/25/20 12:00 BP 120/87 04/25/20 12:00 Pulse Ox 95 04/25/20 12:00 Intake & Output 04/24/20 04/25/20 04/25/20 18:59 06:59 18:59 Intake Total 807.667 153.056 480 Output Total 300 690 900 Balance 507.667 -536.944 -420 Weight 93.9 kg Intake: Intake, IV Titration 87.667 153.056 Amount Heparin Sod,Pork in 0.45% 87.667 153.056 NaCl 25,000 unit In 0.45 % NaCl 1 250ml.bag @ 10. 684 UNITS/KG/HR 10 mls/hr IV .Q24H [facility] Rx#: [id number] Oral 720 480 Output: Urine 300 690 900 Other: Voiding Method Urinal Urinal # Voids 1 - Labs CBC & Chem 7: 04/25/20 05:56 04/23/20 03:37 Labs: Abnormal Lab Results - Last 24 Hours (Table) 04/24/20 Range/Units 22:58 APTT 48.3 H (22.0-30.0) sec Microbiology - Last 24 Hours (Table) 04/23/20 06:00 Urine Culture - Final Urine,Voided
[2020-04-25] MEDS: APIXABAN 5 MG TAB PO SCH (20:14)
[2020-04-25] MEDS: LOSARTAN 50 MG TAB PO SCH (20:14)
[2020-04-25] MEDS: DOXAZOSIN 4 MG TAB PO SCH (20:14)
[2020-04-25] MEDS: LORazepam 0.5 MG TAB PO PRN (21:43)
[2020-04-26 01:58] VITALS: RESP 18
[2020-04-26] MEDS ORDERED: PANTOPRAZOLE 40 MG TABLET PO SCH (07:30)
[2020-04-26] MEDS: APIXABAN 5 MG TAB PO SCH (08:48)
[2020-04-26] MEDS: METOPROLOL SUCCINATE (ER) 25 MG TAB.ER.24H PO SCH (08:48)
[2020-04-26 11:50] VITALS: BP 123/82; PULSE 70; TEMP 97.2
--- NOTE | 2020-04-26 14:18 | PN ---
PROGRESS NOTE DATE OF SERVICE: 04/25/2020 CHIEF COMPLAINT: Syncopal episodes and new onset atrial fibrillation. HISTORY OF PRESENT ILLNESS: This gentleman is doing well and he is feeling fine and is having no problems. He is having a little difficulty with constipation, which is new for him, but does not have any abdominal pain, fever, nausea, etc. PHYSICAL EXAM: 1. Constipation. 2. Syncope. 3. Atrial fibrillation. 4. Hypertension. PLAN: Await for further evaluation from Cardiology and he can probably go home anytime soon. MMODL / IJN: [id number] /
--- NOTE | 2020-04-26 17:30 | P.PN ---
Subjective Patient is doing well. He denies any chest discomfort dizziness lightheadedness or palpitations. He is resting comfortably in bed On examination normal heart sounds normal S1 normal S2 no murmurs Breath sounds are clear no rhonchi no crackles Soft abdomen is nontender and I no JVD no lower extremity edema Afebrile 97.2F pulse rate in the 70s sinus rhythm normal respirations Blood pressure 123/82 mmHg 95% oxygen saturation on room air Impression Atrial fibrillation with RVR, paroxysmal, currently in sinus rhythm, symptomatic Controlled hypertension Hematuria, hemoglobin stable Dilated aortic root at 4.3 cm Atypical chest discomfort following a meal and relieved with omeprazole and no relief with nitroglycerin, likely GI etiology Status post suggest continue ELIQUIS 2.5 mg twice daily Continue Protonix for chest discomfort Repeat 12-lead ECG during chest discomfort Continue Lopressor losartan Objective - Vital Signs Vital signs: Vital Signs Temp 97.2 F L 04/26/20 11:45 Pulse 70 04/26/20 11:45 Resp 18 04/26/20 11:45 BP 123/82 04/26/20 11:45 Pulse Ox 95 04/26/20 11:45 Intake & Output 04/25/20 04/26/20 04/26/20 18:59 06:59 18:59 Intake Total 1080 250 900 Output Total 1300 450 625 Balance -220 -200 275 Weight 93.6 kg Intake: Oral 1080 250 900 Output: Urine 1300 450 625 Other: Voiding Method Urinal Urinal Urinal # Voids 1 1 # Bowel Movements 1 - Labs CBC & Chem 7: 04/25/20 05:56 04/23/20 03:37
--- NOTE | 2020-04-26 18:10 | DS ---
DISCHARGE SUMMARY CHIEF COMPLAINT: Syncope. HISTORY OF PRESENT ILLNESS AND PHYSICAL EXAMINATION: Details of this man's history and physical can be found in the initial workup. LABORATORY STUDIES: While he was in the hospital he had laboratory studies, details of which can be found in the laboratory section of his chart. COURSE IN THE HOSPITAL: After admission he was placed on bedrest and started on intravenous fluids. He was converted back to normal sinus rhythm. He did have troponin elevations and he was seen by Cardiology. Workup failed to demonstrate any acute coronary artery disease or issues. He was doing well, and it was felt that he could be discharged on April 26. He will go home on his usual activity, diet and medication and will follow up in several days in the office. He will go home on anticoagulation. FINAL DIAGNOSES: 1. Syncopal episode. 2. Atrial fibrillation with rapid ventricular response. 3. History of hypertension. 4. Hematuria. OPERATIONS: None. CONSULTATIONS: 1. Cardiology. 2. Urology. He is improved. MMBRIAN / MAEVEN: [id number] /
== END 2020-04-26 17:37 | disposition home or self-care (01) | DRG 309 ==
LOC: EC 13:07 → 3SCARD 13:18
PROVIDERS: ADMIT Family Medicine; ATTEND Family Medicine
DX: I48.0 Paroxysmal atrial fibrillation (principal); N17.9 Acute kidney failure, unspecified; I10 Essential (primary) hypertension; K40.90 Unilateral inguinal hernia, without obstruction or gangrene, not specified as recurrent; F41.9 Anxiety disorder, unspecified; R31.0 Gross hematuria; R91.1 Solitary pulmonary nodule; K59.00 Constipation, unspecified; R07.89 Other chest pain; I77.810 Thoracic aortic ectasia; Z98.890 Other specified postprocedural states; Z90.89 Acquired absence of other organs; Z87.891 Personal history of nicotine dependence; Z80.52 Family history of malignant neoplasm of bladder; Z82.49 Family history of ischemic heart disease and other diseases of the circulatory system; Z79.899 Other long term (current) drug therapy
CPT/HCPCS: 74177; 80053; 81001; 83735; 84484; 85025; 85730; 87086; 93005; 93306; 96365; 99285

== ENCOUNTER 2020-12-04 09:09 | Day surgery (SDC) | payer MEDICARE ==
[2020-11-29 16:06] VITALS: BMI 31.7
[~2020-12-04 09:09] MED LIST changes: -DEXAMETHASONE SOD PHOSPHATE 10 MG/ML 1 ML VIAL IV ONE; -HEPARIN SODIUM,PORCINE 5,000 UNIT/ML 1 ML VIAL SQ ONE; +LIDOCAINE 1% (10MG/ML) FOR IV START INTRADERMA PRN; -LIDOCAINE 1% 20 ML VIAL (10MG/ML) FOR IV START INTRADERMA PRN; -ONDANSETRON 4 MG/2 ML VIAL IVP ONE; -SCOPOLAMINE 1.5MG/72HR PATCH TRANSDERM ONE; -ceFAZolin 2 GM in SODIUM CHLORIDE 0.9% 100 ML IVPB ONE
[2020-12-04 09:46] VITALS: RESP 16; TEMP 97.8
[2020-12-04] MEDS ORDERED: PROPOFOL 10 MG/ML 20 ML VIAL IV ONE (10:21)
--- NOTE | 2020-12-04 10:27 | P.GSHP ---
History of Present Illness H&P Date: 12/04/20 Chief Complaint: Colon cancer screening, history of polyps Patient here today for colonoscopy. Last colonoscopy 5 years ago. Polyps found at that time. Biopsy results not available. No bowel complaints. No family history of colon cancer. Past Medical History Past Medical History: Atrial Fibrillation, Chest Pain / Angina, GERD/Reflux, Hypertension, Prostate Disorder Additional Past Medical History / Comment(s): constipation, chest pain last summer History of Any Multi-Drug Resistant Organisms: None Reported Past Surgical History: Hernia Repair, Tonsillectomy Additional Past Surgical History / Comment(s): Left eye surgery. Past Anesthesia/Blood Transfusion Reactions: No Reported Reaction Additional Past Anesthesia/Blood Transfusion Reaction / Comment(s): . Smoking Status: Former smoker - Past Family History Mother Family Medical History: No Reported History Additional Family Medical History / Comment(s): . Father History Unknown: Yes Medications and Allergies Home Medications Medication Instructions Recorded Confirmed Type HYDROcodone/APAP 5-325MG [[place] 0.5 tab PO BID PRN 07/10/16 11/29/20 History 5-325] Doxazosin Mesylate [Cardura] 4 mg PO HS 04/22/20 12/04/20 History Ergocalciferol (Vitamin D2) 50,000 unit PO Q30D 04/22/20 12/04/20 History [Drisdol (50,000 Iu)] Zolpidem [Ambien] 10 mg PO HS PRN 04/22/20 12/04/20 History Apixaban [Eliquis] 5 mg PO BID #60 tab 04/25/20 12/04/20 Rx Metoprolol Succinate (ER) [Toprol 25 mg PO DAILY #30 tab.er.24h 04/25/20 11/29/20 Rx XL] Aspirin [Adult Low Dose Aspirin EC] 81 mg PO DAILY 11/29/20 11/29/20 History Calcium Carbonate [Tums] 500 mg PO DIRECTED PRN 11/29/20 12/04/20 History Finasteride [Proscar] 5 mg PO DAILY 11/29/20 11/29/20 History PARoxetine HCL [Paxil] 10 mg PO DAILY 11/29/20 11/29/20 History clonazePAM [KlonoPIN] 1 mg PO TID PRN 04/15/21 04/20/21 History Allergies Allergy/AdvReac Type Severity Reaction Status Date / Time No Known Allergies Allergy Verified 11/29/20 15:52 Surgical - Exam Vital Signs Temp Pulse Resp BP Pulse Ox 97.8 F 98 16 149/83 95 12/04/20 09:44 12/04/20 09:44 12/04/20 09:44 12/04/20 09:44 12/04/20 09:44 Physical exam: General: Well-developed, well-nourished HEENT: Normocephalic, sclerae nonicteric Abdomen: Nontender, nondistended Extremities: No edema Neuro: Alert and oriented Assessment and Plan (1) Colon cancer screening Narrative/Plan: Will proceed with colonoscopy at this time Current Visit: Yes Status: Acute Code(s): Z12.11 - ENCOUNTER FOR SCREENING FOR MALIGNANT NEOPLASM OF COLON SNOMED Code(s): 318936711
--- NOTE | 2020-12-04 10:41 | P.PCN ---
Date of Procedure: 12/04/20 Procedure(s) Performed: PREOPERATIVE DIAGNOSIS: Colon cancer screening, history of polyps POSTOPERATIVE DIAGNOSIS: Diverticulosis PROCEDURE: Colonoscopy ANESTHESIA: MAC SURGEON: Sergio Peguero M.D. SPECIMENS: None ENDOSCOPIC PROCEDURE: The patient was placed on the endoscopy table in the left decubitus position. The Olympus colonoscope was inserted into the anus and passed under direct visualization to the base of the cecum. The appendiceal orifice was visualized. From that point the scope was slowly withdrawn inspecting all surfaces carefully. There were no neoplastic inflammatory or polypoid lesions throughout the cecum, ascending, transverse, descending, sigmoid and rectum. There was mild left-sided diverticulosis noted. Patient's prep was slightly suboptimal.. Digital rectal examination was normal. The patient was taken to the recovery room in stable condition per anesthesia guide lines. RECOMMENDATIONS: Resume diet. Follow-up colonoscopy 5 years.
[2020-12-04 11:04] VITALS: BP 115/78; PULSE 68
== END 2020-12-04 11:33 | disposition home or self-care (01) ==
LOC: ORWHC2ENDO 09:09
PROVIDERS: ATTEND Surgery
DX: Z12.11 Encounter for screening for malignant neoplasm of colon (principal); Z86.010 Personal history of colon polyps; K57.30 Diverticulosis of large intestine without perforation or abscess without bleeding; K21.9 Gastro-esophageal reflux disease without esophagitis; I48.91 Unspecified atrial fibrillation; I10 Essential (primary) hypertension; I25.2 Old myocardial infarction; Z87.891 Personal history of nicotine dependence; Z79.01 Long term (current) use of anticoagulants; Z79.82 Long term (current) use of aspirin; Z79.899 Other long term (current) drug therapy
CPT/HCPCS: J2704; G0121

== ENCOUNTER 2021-01-08 09:52 | Observation (INO) | payer MEDICARE ==
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
--- NOTE | 2021-01-08 10:49 | XR ---
EXAMINATION TYPE: XR chest 2V DATE OF EXAM: 01/08/2021 COMPARISON: 07/10/2016 HISTORY: Shortness of breath TECHNIQUE: Frontal and lateral views of the chest are obtained. FINDINGS: Scattered senescent parenchymal changes noted. Hyperinflation compatible with COPD. No evidence for infiltrate. No evidence for atelectasis. Heart size is stable. Mediastinal structures are stable and grossly unremarkable. No evidence for hilar prominence. Degenerative changes dorsal spine. IMPRESSION: 1. No evidence for acute pulmonary disease.
[2021-01-08 10:58] LABS: Basophils % (A) 0 %; Eosinophils % (A) 1 %; HCT 40.7 % (39.0-53.0); HGB 14.1 gm/dL (13.0-17.5); Lymphocytes # (A) 1.4 k/uL (1.0-4.8); Lymphocytes % (A) 21 %; MCH 30.5 pg (25.0-35.0); MCHC 34.5 g/dL (31.0-37.0); MCV 88.5 fL (80.0-100.0); Mean Platelet Volume 7.3; Monocytes # (A) 0.5 k/uL (0-1.0); Monocytes % (A) 7 %; Neutrophils # (A) 4.7 k/uL (1.3-7.7); Neutrophils % (A) 69 %; Platelet Count 205 k/uL (150-450); RDW 12.7 % (11.5-15.5); WBC 6.8 k/uL (3.8-10.6)
[2021-01-08 11:11] LABS: Albumin 3.7 g/dL (3.5-5.0); Calcium 9.5 mg/dL (8.4-10.2); INR 0.9 (<1.2); Magnesium 1.8 mg/dL (1.6-2.3); Partial Thromboplastin Time 22.7 sec (22.0-30.0); Potassium 4.4 mmol/L (3.5-5.1); Total Bilirubin 0.2 mg/dL (0.2-1.3); Total Protein 6.2 g/dL (6.3-8.2)
[2021-01-08] MEDS ORDERED: FAMOTIDINE 20 MG/2 ML VIAL IV STA (11:35)
[2021-01-08] MEDS ORDERED: NITROGLYCERIN SL TABS 0.4 MG TAB SUBLINGUAL PRN (11:40)
[2021-01-08] MEDS ORDERED: HYDROcodone/APAP 5-325MG 1 EACH TAB PO PRN (14:35)
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
[2021-01-08] MEDS ORDERED: ACETAMINOPHEN TAB 500 MG TAB PO PRN (19:40)
[2021-01-08] MEDS ORDERED: clonazePAM 1 MG TAB PO PRN (19:40)
[2021-01-08] MEDS: DOXAZOSIN 4 MG TAB PO SCH (21:15)
[2021-01-08] MEDS: APIXABAN 5 MG TAB PO SCH (21:15)
[2021-01-09] MEDS: METOPROLOL SUCCINATE (ER) 25 MG TAB.ER.24H PO SCH ×2 (07:25→11:15)
[2021-01-09] MEDS: APIXABAN 5 MG TAB PO SCH ×2 (07:25→20:03)
[2021-01-09] MEDS: HYDROcodone/APAP 5-325MG 1 EACH TAB PO PRN ×2 (07:26→16:37)
[2021-01-09] MEDS: FINASTERIDE 5 MG TAB PO SCH (07:26)
[2021-01-09] MEDS: PARoxetine 10 MG TAB PO SCH (07:30)
[2021-01-09] MEDS ORDERED: ASPIRIN 325 MG TAB PO SCH (09:00)
[2021-01-09] MEDS ORDERED: ASPIRIN 81 MG PO SCH (09:00)
[2021-01-09] MEDS ORDERED: REGADENOSON 0.4 MG/5 ML SYRINGE IV PRN (09:05)
[2021-01-09] MEDS ORDERED: CAFFEINE CITRATE 60 MG/3 ML VIAL IV PRN (09:05)
[2021-01-09] MEDS ORDERED: AMINOPHYLLINE 500 MG/20 ML VIAL IV PRN (09:05)
[2021-01-09 10:43] LABS: Chol/HDL Ratio 4.36; LDL Cholesterol,Calculated 73.4 mg/dL (0.0-131.0); VLDL Calculation 37.6 mg/dL (5.00-40.00)
[2021-01-09] MEDS: COLLAGENASE 250 UNIT/GM OINTMENT 30 GM TUBE TOPICAL SCH (11:15)
--- NOTE | 2021-01-09 11:34 | ECHOF ---
Referral Reason:chest pain, syncope MEASUREMENTS -------- HEIGHT: 175.3 cm WEIGHT: 93.0 kg BP: IVSd: 1.3 cm (0.6 - 1.1) LVIDd: 4.1 cm (3.9 - 5.3) LVPWd: 1.3 cm (0.6 - 1.1) EDV(Teich): 76 ml IVSs: 1.5 cm LVIDs: 2.7 cm LVPWs: 1.3 cm %IVS Thck: 16 % ESV(Teich): 27 ml EF(Teich): 64 % %FS: 34 % SV(Teich): 48 ml Ao Diam: 4.1 cm (2.0 - 3.7) AV Cusp: 2.4 cm (1.5 - 2.6) EPSS: 0.3 cm MV E Anirudh: 0.38 m/s MV DecT: 317 ms MV Dec [place]: 1.2 m/s MV A Anirudh: 0.79 m/s MV E/A Ratio: 0.48 MV PHT: 92 ms LVOT Vmax: 1.03 m/s LVOT maxP.26 mmHg LVOT Vmax: 1.04 m/s LVOT Vmean: 0.69 m/s LVOT maxP.34 mmHg LVOT meanP.12 mmHg LVOT Env.Ti: 254 ms LVOT VTI: 17.5 cm AV Vmax: 1.22 m/s AV maxP.95 mmHg AV Vmax: 1.14 m/s AV Vmean: 0.72 m/s AV maxP.21 mmHg AV meanP.46 mmHg AV Env.Ti: 295 ms AV VTI: 21.4 cm AR Vmax: 4.45 m/s AR maxP.18 mmHg AR PHT: 920 ms AR Dec Time: 3172 ms AR Dec [place]: 1.4 m/s MV EF SLOPE: 50.15 mm/s (70 - 150) MV EXCURSION: 18.74 mm (> 18.000) FINDINGS -------- Sinus rhythm. This was a technically good study. The left ventricular size is normal. There is mild concentric left ventricular hypertrophy. Overa ll left ventricular systolic function is low-normal with, an EF between 50 - 55 %. The right ventricle is normal in size. The left atrial size is normal. The right atrial size is normal. There is mild aortic regurgitation. Peak/mean gradient across the Aortic Valve is 5.21mmHg / 2.46mm Hg. Mild mitral regurgitation is present. Mild tricuspid regurgitation present. Right ventricular systolic pressure is normal at < 35 mmHg. Trace/mild (physiologic) pulmonic regurgitation. 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 There is no pericardial effusion. CONCLUSIONS -------- 1. The left ventricular size is normal. 2. There is mild concentric left ventricular hypertrophy. 3. Overall left ventricular systolic function is low-normal with, an EF between 50 - 55 %. 4. The right ventricle is normal in size. 5. The left atrial size is normal. 6. The right atrial size is normal. 7. There is mild aortic regurgitation. 8. Peak/mean gradient across the Aortic Valve is 5.21mmHg / 2.46mmHg. 9. Mild mitral regurgitation is present. 10. Mild tricuspid regurgitation present. 11. Trace/mild (physiologic) pulmonic regurgitation. 12. 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 13. There is no pericardial effusion. MARKETING SECRETARY: Alisa Davis RDCS
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
--- NOTE | 2021-01-09 12:19 | NM ---
EXAMINATION TYPE: NM stress lexiscan cardiolite DATE OF EXAM: 01/09/2021 COMPARISON: NONE HISTORY: Chest pain. History of hypertension and tobacco use. TECHNIQUE: After the intravenous administration of 9.7 mCi Tc 99m Sestamibi - Cardiolite resting SPE CT images acquired 80 minutes post injection. The patient received 0.4mg Lexiscan, 24.4 mCi Tc 99m Sestamibi - Stress images obtained [address] injection FINDINGS: Review of stress and rest SPECT images demonstrates no distinct perfusion abnormality. Gated analysi s shows normal wall motion with an estimated left ventricular ejection fraction of 72 %. IMPRESSION: No scintigraphic evidence for reversible ischemia.
[2021-01-09] MEDS: DOXAZOSIN 4 MG TAB PO SCH (20:04)
[2021-01-10] MEDS: FINASTERIDE 5 MG TAB PO SCH (07:26)
[2021-01-10] MEDS: PARoxetine 10 MG TAB PO SCH (07:27)
[2021-01-10] MEDS: APIXABAN 5 MG TAB PO SCH ×2 (08:23→21:20)
[2021-01-10] MEDS: METOPROLOL SUCCINATE (ER) 25 MG TAB.ER.24H PO SCH (10:51)
[2021-01-10] MEDS: COLLAGENASE 250 UNIT/GM OINTMENT 30 GM TUBE TOPICAL SCH (10:52)
--- NOTE | 2021-01-10 13:58 | P.PN ---
Subjective HISTORY OF PRESENTING ILLNESS This is a pleasant 70-year-old male past medical history significant for paroxysmal atrial fibrillation (on eliquis), dyslipidemia, hypertension. He follows in the office with Dr. Chi. We have been asked to see in consultation for chest pain. Patient presents to the emergency department with complaints of pre-syncopal episode Yesterday morning. He was brushing his teeth. He felt weak and felt his heart was "flickering". He decided to call 911 and present to the emergency department. He states his warning signs of syncope were increased weakness and some lightheadedness. This has happened to him 2-3 times in the past. His chest feeling is not a pain. He describes it as a "flickering" feeling. It is not radiating. It is not exertional. He denies shortness of breath, dizziness. On exam, patient is no longer having chest pain. He is a former smoker quit in 2000. He denies alcohol or illicit drug use. Current home cardiac medications include metoprolol succinate 25 mg daily, aspirin 81 mg daily, Eliquis 5 mg twice a day. In March 2020 patient presented to the hospital with complaints of palpitations and feeling that he may pass out. Patient was found to be in atrial fibrillation with RVR. Patient was started on the Cardizem drip and IV heparin and he converted to sinus rhythm. Patient was stabilized. His echocardiogram at that time revealed an EF between 60-65%, mild aortic regurgitation. He was transitioned to metoprolol and Eliquis was discharged home. In June 2020 patient was seen in the office underwent Cardiolyte stress test. However, adequate results were not obtained due to patient's poor exercise tolerance. In May 2020 patient underwent 24-hour holter monitor- revealed sinus rhythm occasional PACs and PVCs. Episodes of sinus bradycardia and sinus tachycardia and 4 beat run of NSVT. EKG reveals sinus mechanism heart rate 65, left axis deviation, no significant ST-T wave abnormalities. EKG this morning with similar findings. Chest xray No acute cardiopulmonary process 01/09: Lexiscan stress test negative for cardiac ischemia. Echocardiogram reveal ed EF between 50-55%, mild aortic regurgitation with a peak/mean gradient 55 mmHg/2.4 mmHg, mild mitral regurgitation, mild tricuspid regurgitation. 01/10/2021: Patient seen and examined at bedside, no acute distress. Telemetry tracings indicate sinus mechanism HR in the 60s-70s, no arrythmia or ectopy noted. Laboratory reviewed, triglycerides 188, cholesterol 144, LDL 73, HDL 33 PHYSICAL EXAMINATION Blood pressure 115/73 heart rate 65 afebrile and maintaining oxygen saturation 96% on room air GENERAL: Well-appearing, well-nourished and in no acute distress. NECK: Supple without JVD or thyromegaly. LUNGS: Breath sounds clear to auscultation bilaterally. Respiration equal and unlabored. No wheezes, rales or rhonchi. HEART: Regular rate and rhythm without murmurs, rubs or gallops. S1 and S2 heard. EXTREMITIES: Normal range of motion, no edema. No clubbing or cyanosis. Peripheral pulses intact. ASSESSMENT Chest Pain, atypical. Acute coronary syndrome has been ruled out. No ishemic c hanges on EKG. Troponin negative x 3. Pre-syncope, unclear etiology. Orthostatic vitals were slightly positive with SBP 143 to 121. Possibly vasovagal Paroxysmal atrial fibrillation (on eliquis) - currently in sinus mechanism Dyslipidemia ASCVD risk 20.5% Hypertension. PLAN Plan for Tilt table test today with Dr. Miller If test negative, ok to discharge patient from cardiology perspective and follow up with Dr. Chi in the office for an event monitor placement Start statin Continue home Eliquis and metoprolol succinate Further recommendations based on clinical course Nurse Practitioner note has been reviewed, I agree with a documented findings and plan of care. Patient was seen and examined. Objective - Vital Signs Vital signs: Vital Signs Temp 98.3 F 01/10/21 07:00 Pulse 65 01/10/21 07:00 Resp 19 01/10/21 07:30 BP 115/73 01/10/21 07:00 Pulse Ox 96 01/10/21 07:00 Intake & Output 01/09/21 01/10/21 01/10/21 18:59 06:59 18:59 Intake Total 354 0 Balance 354 0 Weight 92.99 kg Intake: Oral 354 0 Other: Voiding Method Toilet # Voids 4 - Labs CBC & Chem 7: 01/08/21 10:31 01/08/21 10:31
[2021-01-10] MEDS ORDERED: IV FLUID CONTINUATION 1,000 ML IV ONE (15:06)
[2021-01-10] MEDS: SODIUM CHLORIDE 0.9% 1,000 ML IV SCH (17:15)
[2021-01-10] MEDS: HYDROcodone/APAP 5-325MG 1 EACH TAB PO PRN (17:30)
--- NOTE | 2021-01-10 17:44 | PN ---
PROGRESS NOTE DATE OF SERVICE: 01/10/2021 CHIEF COMPLAINT: Chest pain. HISTORY OF PRESENT ILLNESS: This gentleman is doing well and awaits further recommendations from Cardiology. PHYSICAL EXAMINATION: His chest is clear. Cardiac exam demonstrates his atrial fibrillation. The abdomen is soft, nontender. IMPRESSION: 1. Chest pain. 2. Atrial fibrillation. PLAN: Await further guidelines from Cardiology or discharge. MMODL / IJN: [id number] /
--- NOTE | 2021-01-10 17:44 | PN ---
PROGRESS NOTE DATE OF SERVICE: 01/09/2021 CHIEF COMPLAINT: Chest pain. HISTORY OF PRESENT ILLNESS: This gentleman is doing well, and it was expected that the patient would go home. Apparently Cardiology plans some other studies, however, and his discharge will be canceled. He feels fine. He has had no chest pain, shortness of breath, fever, chills, etc. PHYSICAL EXAMINATION: Vital signs are normal. Chest is clear. Cardiac exam is normal and the abdomen is soft and nontender. IMPRESSION: 1. Chest pain. 2. Hypertension. 3. Third-degree burn on the back of the leg. PLAN: Await further studies, outcomes and recommendations by Cardiology. MMODL / IJN: [id number] /
--- NOTE | 2021-01-10 19:22 | P.EPPROC ---
- EP Procedure Note Electrophysiology Procedure Note: Diagnosis Recurrent presyncope and syncope Twelve-lead EKG Sinus rhythm normal VT interval narrow QRS normal ST segments left axis Tilt table test per protocol Baseline blood pressure 131/83 mmHg, Baseline heart rate 80 beats a minute Patient was tilted upright at an angle of 70 per protocol After 5 minutes the patient had sinus tachycardia at 134 beats a minute. This was followed by a sudden drop in blood pressure 82 mmHg The patient became sweaty and dizzy and felt he was then passed out When he is laid supine his blood pressure improved to 114/79 mmHg and his heart rate improved to 96 and subsequently to 76 beats a minute as his blood pressure further Impression Neurocardiogenic syncope Normal 12-lead EKG
--- NOTE | 2021-01-10 20:10 | P.STRESS ---
- Stress Test Note Stress Test Results/Findings: Exam Performed: NM stress lexiscan cardiolite Exam Date: 01/09/21 Reason for Exam: CHEST PAIN Height: 5 ft 9 in Weight: 92.99 kg Protocol: LEXISCAN Stage: N/A Duration of Exercise: 5 MINUTES Resting Heart Rate: 70 Resting Blood Pressure: 140/90 Maximum Achieved Heart Rate: 118 Maximum Achieved Blood Pressure: 140/90 85% PMHR: 126 100% PMHR: 148 METS: N/A Technologist Comment: Stress Test Results/Findings: Baseline heart rate 70 beats a minute, Baseline blood pressure 140/90 mmHg Baseline 12-lead EKG shows sinus rhythm normal [place] narrow) was 6 seconds Patient received Lexiscan infusion per protocol No ST segment abnormalities noted Occasional PVCs noted No change in heart rate and blood pressure Nuclear portion he reported separately
[2021-01-10] MEDS: DOXAZOSIN 4 MG TAB PO SCH (21:50)
[2021-01-11 02:41] VITALS: PULSE 75
[2021-01-11] MEDS: HYDROcodone/APAP 5-325MG 1 EACH TAB PO PRN (03:21)
[2021-01-11 07:47] VITALS: BP 133/81; RESP 17; TEMP 97.7
[2021-01-11] MEDS: FINASTERIDE 5 MG TAB PO SCH (08:28)
[2021-01-11] MEDS: METOPROLOL SUCCINATE (ER) 25 MG TAB.ER.24H PO SCH (08:28)
[2021-01-11] MEDS: PARoxetine 10 MG TAB PO SCH (08:28)
[2021-01-11] MEDS: APIXABAN 5 MG TAB PO SCH (08:28)
[2021-01-11] MEDS ORDERED: ATORVASTATIN 40 MG TAB PO SCH (09:00)
[2021-01-11] MEDS: SODIUM CHLORIDE 0.9% 1,000 ML IV SCH (10:26)
--- NOTE | 2021-01-11 10:53 | ECHOS ---
Stress Test Results/Findings: Exam Performed: NM stress lexiscan cardiolite Exam Date: 01/09/21 Reason for Exam: CHEST PAIN Height: 5 ft 9 in Weight: 92.99 kg Protocol: LEXISCAN Stage: N/A Duration of Exercise: 5 MINUTES Resting Heart Rate: 70 Resting Blood Pressure: 140/90 Maximum Achieved Heart Rate: 118 Maximum Achieved Blood Pressure: 140/90 85% PMHR: 126 100% PMHR: 148 METS: N/A Technologist Comment: Stress Test Results/Findings: Baseline heart rate 70 beats a minute, Baseline blood pressure 140/90 mmHg Baseline 12-lead EKG shows sinus rhythm normal [place] narrow) was 6 seconds Patient received Lexiscan infusion per protocol No ST segment abnormalities noted Occasional PVCs noted No change in heart rate and blood pressure Nuclear portion he reported separately MTDD
[2021-01-11] MEDS: COLLAGENASE 250 UNIT/GM OINTMENT 30 GM TUBE TOPICAL SCH (11:19)
--- NOTE | 2021-01-11 11:49 | PN ---
PROGRESS NOTE DATE OF SERVICE: 01/11/2021. CHIEF COMPLAINT: Chest pain. HISTORY OF PRESENT ILLNESS: This gentleman is doing well. He has had no chest pain. He has undergone several cardiac studies and reports are pending. He is anxious to be discharged. PHYSICAL EXAMINATION: Chest is clear. Cardiac exam demonstrates atrial fibrillation. Abdomen is soft, nontender. IMPRESSION: 1. Chest pain. 2. Atrial fibrillation. PLAN: Probably home today. MMODL / IJN: [id number] /
--- NOTE | 2021-01-11 11:52 | P.PN ---
Subjective Patient is lying comfortably in bed No dizziness lightheadedness or palpitations at this time but he was admitted with recurrent presyncope Lexiscan Cardiolite stress test did not show any evidence for ischemia 2-D echo shows preserved LV systolic function mild LVH He underwent a tilt table test yesterday which was strongly positive for vasodepressor syncope/neurocardiogenic syncope, typical This reproduced his clinical symptoms fairly closely Brain examination Afebrile 98.1F pulse rate in the 70s normal respirations blood pressure 133/81 mmHg Normal heart sounds Normal breath sounds Abdomen soft nontender Eccentric is warm no edema Impression Recurrent presyncopal and syncopal spells, likely related to neurocardiogenic syncope Postoperative tilt table test for neurocardiogenic syncope No arrhythmias while in the hospital Normal stress test, 2-D echo shows preserved systolic function with mild LVH Suggest Discontinue Cardura completely May continue Proscar Continue metoprolol Continue all other medications Follow-up with Dr. Maya Objective - Vital Signs Vital signs: Vital Signs Temp 97.7 F 01/11/21 07:46 Pulse 75 01/11/21 02:03 Resp 17 01/11/21 07:46 BP 133/81 01/11/21 07:46 Pulse Ox 97 01/11/21 07:46 Intake & Output 01/10/21 01/11/21 01/11/21 18:59 06:59 18:59 Output Total 0 Balance 0 Output: Urine 0 Other: Voiding Method Toilet Toilet # Voids 3 1 - Labs CBC & Chem 7: 01/08/21 10:31 01/08/21 10:31
--- NOTE | 2021-01-11 22:29 | DS ---
DISCHARGE SUMMARY DATE OF DISCHARGE: 01/11/2021 CHIEF COMPLAINT: Chest pain. HISTORY OF PRESENT ILLNESS/PHYSICAL EXAMINATION: Details of this man's history and physical can be found in the initial workup. LABORATORY STUDIES: While he was in the hospital he had laboratory studies, details of which can be found in the laboratory section of his chart. COURSE IN THE HOSPITAL: After admission he was placed on bedrest, started on intravenous fluids and placed on telemetry. He was seen by Cardiology. He had no further symptoms while in the hospital. His troponins were negative. He underwent a cardiac workup and evaluation, including a tilt-table test, and was doing well. It was felt that he could be discharged on January 11. He will go home on his usual diet, activity and his usual medications in addition to changes that Cardiology made. He will be seen in the office in several days. FINAL DIAGNOSES: 1. Chest pain, non-cardiac. 2. Atrial fibrillation. 3. Orthostatic hypotension. 4. Third-degree burn of the right posterior lower leg. OPERATIONS: None. CONSULTATION: Cardiology. He is improved. MMODL / IJN: [id number] /
== END 2021-01-11 15:10 | disposition home or self-care (01) ==
LOC: EC 09:52 → 6NMEDSUR 11:59
PROVIDERS: ADMIT Family Medicine; ATTEND Family Medicine
DX: R07.89 Other chest pain (principal); I48.0 Paroxysmal atrial fibrillation; I95.1 Orthostatic hypotension; T24.031A Burn of unspecified degree of right lower leg, initial encounter; I10 Essential (primary) hypertension; F41.9 Anxiety disorder, unspecified; R53.1 Weakness; R00.2 Palpitations; E78.5 Hyperlipidemia, unspecified; N40.0 Benign prostatic hyperplasia without lower urinary tract symptoms; M54.9 Dorsalgia, unspecified; K21.9 Gastro-esophageal reflux disease without esophagitis; K59.00 Constipation, unspecified; Z20.822 Contact with and (suspected) exposure to COVID-19; Z79.01 Long term (current) use of anticoagulants; Z79.899 Other long term (current) drug therapy; Z87.891 Personal history of nicotine dependence; Z86.711 Personal history of pulmonary embolism; Z79.82 Long term (current) use of aspirin; Z87.19 Personal history of other diseases of the digestive system; Z84.2 Family history of other diseases of the genitourinary system
CPT/HCPCS: 93005 ×3; 96374; 99285; 36415; 93017; 93660; 83880; 80061; 80053; 83690; 83735; 84484; 85025; 85610; 85730; 87635; 71046; 78452; G0378 ×4; C8929; A9500; S0138 ×3; J2785; 93306

== ENCOUNTER 2021-04-08 13:15 | Observation (INO) | payer MEDICARE ==
[2021-04-08 13:26] VITALS: RESP 16
--- NOTE | 2021-04-08 13:46 | ED ---
General Adult HPI - General Chief complaint: Chest Pain Stated complaint: Chest Pain Time Seen by Provider: 04/08/21 13:29 Source: patient, EMS, old records reviewed Mode of arrival: EMS Limitations: no limitations - History of Present Illness Initial comments: Dictation was produced using [employer]inc software dictation software. please excuse any grammatical, word or spelling errors. Chief Complaint: 70-year-old male sent from [facility] for concerns of unstable angina History of Present Illness: Is a 70-year-old male he states that he is sent here from [facility] for chest pain. Patient was evaluated [facility] for chest pain. Chest pain workup was unremarkable. He did have elevated blood pressures. There is concern by [facility] emergency doctor the patient having hypertensive emergency. Patient states that he initially went to the hospital because of some mild dizziness and sharp chest pain. Denies any associated shortness of breath. Patient takes apixaban for A. fib. He is given nitroglycerin with improvement of symptoms. Patient is a poor historian. Patient denies any active symptoms at this time. Patient states he's been evaluated for chest pain in the hospital 3 separate occasions. According to transfer documentation patient is experiencing left-sided chest pressure at the time with associated abdominal pain. Patient mild leukocytosis of 10.7, hemoglobin of 15.5. Metabolic panel is within acceptable limits. Chest x-ray is unremarkable. CT of the abdomen and pelvis was ordered chest and was for epigastric pain. 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 Those systems with pertinent positive or negative responses have been documented in the HPI. All other systems are other negative and/or noncontributory. PHYSICAL EXAM: General Impression: Alert and oriented x3, not in acute distress HEENT: Normocephalic atraumatic, extra-ocular movements intact, pupils equal and reactive to light bilaterally, mucous membranes moist. Cardiovascular: Heart regular rate and rhythm Chest: Able to complete full sentences, no retractions, no tachypnea Abdomen: abdomen soft, non-tender, non-distended, no organomegaly Musculoskeletal: Pulses present and equal in all extremities, no peripheral edema Motor: no focal deficits noted Neurological: CN II-XII grossly intact, no focal motor or sensory deficits noted Skin: Intact with no visualized rashes Psych: Normal affect and mood ED course: 70-year-old male transferred for chest pain concerning for unstable angina as upon arrival are within except the limits. Blood pressure is 180/107. Patient evaluated bedside and in stable medical condition. Patient is well- appearing. He has no active specific complaints. Transfer documentation was reviewed in its entirety. I do not suspect hypertensive emergency given the patient is asymptomatic. At the bedside he does not have any significant features to suggest hypertensive emergency. No severe chest pain, shortness of breath, struggling symptoms or headache. Patient will be admitted to observation for cardiac monitoring, cardiac consultation and serial troponins. Case discussed Dr. Man who is willing to accept patient care. - Related Data Home Medications Medication Instructions Recorded Confirmed HYDROcodone/APAP 5-325MG [[place] 0.5 tab PO Q6H PRN 07/10/16 04/08/21 5-325] Doxazosin Mesylate [Cardura] 4 mg PO HS 04/22/20 04/08/21 Aspirin [Adult Low Dose Aspirin EC] 81 mg PO DAILY 11/29/20 04/08/21 Finasteride [Proscar] 5 mg PO DAILY 11/29/20 04/08/21 PARoxetine HCL [Paxil] 10 mg PO DAILY 11/29/20 04/08/21 clonazePAM [KlonoPIN] 1 mg PO TID PRN 11/29/20 04/08/21 Ergocalciferol [Vitamin D2 (1250 1,250 mcg PO Q28D 04/08/21 04/08/21 Mcg = 76948 Iu)] Mag Hydrox/Aluminum Hyd/Simeth 10 ml PO DAILY PRN 04/08/21 04/08/21 [Mylanta Maximum Strength Liq] Previous Rx's Medication Instructions Recorded Apixaban [Eliquis] 5 mg PO BID #60 tab 04/25/20 Metoprolol Succinate (ER) [Toprol 25 mg PO DAILY #30 tab.er.24h 04/25/20 XL] Atorvastatin [Lipitor] 40 mg PO DAILY tab 01/11/21 Allergies Allergy/AdvReac Type Severity Reaction Status Date / Time No Known Allergies Allergy Verified 04/08/21 15:39 Review of Systems ROS Statement: Those systems with pertinent positive or pertinent negative responses have been documented in the HPI. ROS Other: All systems not noted in ROS Statement are negative. Past Medical History Past Medical History: Atrial Fibrillation, Hypertension Additional Past Medical History / Comment(s): R lower leg burn/pain being seen at [facility], diverticular disease, constipation, BPH, occasional back pain History of Any Multi-Drug Resistant Organisms: None Reported Past Surgical History: Hernia Repair, Tonsillectomy Additional Past Surgical History / Comment(s): L facial/L eye injury from fall from scaffolding with surgical repair, L inguinal hernia repair/L orchiectomy, colonoscopy Past Anesthesia/Blood Transfusion Reactions: No Reported Reaction Additional Past Anesthesia/Blood Transfusion Reaction / Comment(s): . Past Psychological History: No Psychological Hx Reported Smoking Status: Former smoker Past Alcohol Use History: None Reported Past Drug Use History: None Reported - Past Family History Mother Family Medical History: No Reported History Additional Family Medical History / Comment(s): Mother fractured her ankle and had problems with it all her life. Father History Unknown: Yes Family Medical History: Prostate Disorder General Exam Limitations: no limitations Course Vital Signs 04/08/21 04/08/21 04/08/21 13:20 19:17 22:22 Temperature 98.0 F Pulse Rate 66 70 77 Pulse Rate [ Right Pulse Oximetery] Respiratory 16 16 16 Rate Blood Pressure 180/107 123/72 123/72 Blood Pressure [Right Arm] O2 Sat by Pulse 96 95 97 Oximetry 04/09/21 04/09/21 06:29 08:11 Temperature 97 F L 97.7 F Pulse Rate 61 Pulse Rate [ 75 Right Pulse Oximetery] Respiratory 16 16 Rate Blood Pressure 107/75 Blood Pressure 136/83 [Right Arm] O2 Sat by Pulse 97 96 Oximetry Disposition Clinical Impression: Chest pain Disposition: ADMITTED IP TO THIS HOSP Condition: Fair
[2021-04-08] MEDS ORDERED: NITROGLYCERIN SL TABS 0.4 MG TAB SUBLINGUAL PRN (13:58)
[2021-04-08] MEDS: HYDROcodone/APAP 5-325MG 1 EACH TAB PO PRN (19:16)
[2021-04-08] MEDS ORDERED: DOXAZOSIN 4 MG TAB PO SCH (21:00)
[2021-04-08] MEDS ORDERED: APIXABAN 5 MG TAB PO SCH (21:00)
[2021-04-08] MEDS: clonazePAM 0.5 MG TAB PO SCH (22:20)
[2021-04-09] MEDS ORDERED: AMINOPHYLLINE 500 MG/20 ML VIAL IV PRN (08:23)
[2021-04-09] MEDS ORDERED: REGADENOSON 0.4 MG/5 ML SYRINGE IV PRN (08:23)
[2021-04-09] MEDS ORDERED: CAFFEINE CITRATE 60 MG/3 ML VIAL IV PRN (08:23)
[2021-04-09] MEDS ORDERED: SODIUM CHLORIDE 0.9% 1,000 ML IV SCH (08:30)
[2021-04-09] MEDS ORDERED: METOPROLOL SUCCINATE (ER) 25 MG TAB.ER.24H PO SCH (09:00)
[2021-04-09] MEDS ORDERED: PARoxetine 10 MG TAB PO SCH (09:00)
[2021-04-09] MEDS ORDERED: ASPIRIN 81 MG PO SCH (09:00)
[2021-04-09] MEDS ORDERED: ASPIRIN 325 MG TAB PO SCH (09:00)
[2021-04-09] MEDS: HYDROcodone/APAP 5-325MG 1 EACH TAB PO PRN ×2 (09:57→16:57)
[2021-04-09] MEDS: clonazePAM 0.5 MG TAB PO SCH ×2 (09:59→16:58)
--- NOTE | 2021-04-09 12:05 | P.CRDCN ---
History of Present Illness History of present illness: HISTORY OF PRESENTING ILLNESS This is a pleasant 70-year-old male past medical history significant for paroxysmal atrial fibrillation on long-term anticoagulation, hypertension and dyslipidemia. He follows in the office with Dr. Chi. We have been asked to see in consultation for chest pain. He presented to the hospital yesterday afternoon with symptoms of chest discomfort in the midsternal region. Initial evaluation was done at an outside facility. His blood pressure there was quite elevated, 180/107. He had some associated dizziness. He denies shortness of breath or palpitations. Sublingual nitroglycerin did improve his chest pain. He also had some associated abdominal discomfort obtain a CT that was negative for any acute process with incidental finding of dilated aortic root at 4.8 cm. He is seen and examined resting comfortably laying flat in bed in no acute distress. He has no active chest discomfort at this time. EKG reveals sinus mechanism with no acute ST or T wave abnormalities noted. He underwent a Lexiscan stress test December 2020 that was negative for reversibility. Echocardiogram obtained at that time revealed preserved LV systolic function with ejection fraction 50-55%, mild aortic regurgitation with a mean gradient across the valve of 2.4 mmHg, dilated aortic root at 4.1 cm. At that time he also underwent a tilt table test secondary to recurrent presyncope and syncope revealing neurocardiogenic syncope with sinus tachycardia and a sudden drop in his blood pressure of over 80 mmHg. He became symptomatic and then he did pass out during the test. REVIEW OF SYSTEMS At the time of my exam: CONSTITUTIONAL: Denies fever or chills. CARDIOVASCULAR: Denies chest pain, shortness of breath, orthopnea, PND or palpitations. RESPIRATORY: Denies cough. GASTROINTESTINAL: Denies abdominal pain, diarrhea, constipation, nausea or vomiting. MUSCULOSKELETAL: Denies myalgias. NEUROLOGIC: Denies numbness, tingling, headache or weakness. ENDOCRINE: Denies fatigue, weight change, polydipsia or polyurina. GENITOURINARY: Denies burning, hematuria or urgency with micturation. HEMATOLOGIC: Denies history of anemia or bleeding. PHYSICAL EXAMINATION Blood pressure 136/83 heart rate 75 afebrile and maintaining oxygen saturation on room air. CONSTITUTIONAL: No apparent distress. HEENT: Head is normocephalic. Pupils are equal, round. Sclerae anicteric. Mucous membranes of the mouth are moist. No JVD. No carotid bruit. CHEST EXAMINATION: Lungs are clear to auscultation. No chest wall tenderness is noted on palpation or with deep breathing. HEART EXAMINATION: Regular rate and rhythm. S1, S2 heard. No murmurs, gallops or rub. ABDOMEN: Soft, nontender. EXTREMITIES: 2+ peripheral pulses, no lower extremity edema and no calf tenderness. Dressing in place to right foot. NEUROLOGIC EXAMINATION: Patient is awake, alert and oriented x3. 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 Maintaining SR on the monitor Hypertension Dyslipidemia PLAN An acute coronary event has been rule out. Recent stress testing has been unremarkable x2 in the previous 1 year. Unclear etiology of chest pain, appears non-cardiac. Consider GI etiology. He can be discharged home and follow up with Dr. Chi in the office. Thank you kindly for this consultation. Nurse Practitioner note has been reviewed, I agree with a documented findings and plan of care. Patient was seen and examined. Past Medical History Past Medical History: Atrial Fibrillation, Hypertension Additional Past Medical History / Comment(s): R lower leg burn/pain being seen at [facility], diverticular disease, constipation, BPH, occasional back pain History of Any Multi-Drug Resistant Organisms: None Reported Past Surgical History: Hernia Repair, Tonsillectomy Additional Past Surgical History / Comment(s): L facial/L eye injury from fall from scaffolding with surgical repair, L inguinal hernia repair/L orchiectomy, colonoscopy Past Anesthesia/Blood Transfusion Reactions: No Reported Reaction Additional Past Anesthesia/Blood Transfusion Reaction / Comment(s): . Past Psychological History: No Psychological Hx Reported Smoking Status: Former smoker Past Alcohol Use History: None Reported Past Drug Use History: None Reported - Past Family History Mother Family Medical History: No Reported History Additional Family Medical History / Comment(s): Mother fractured her ankle and had problems with it all her life. Father History Unknown: Yes Family Medical History: Prostate Disorder Medications and Allergies Home Medications Medication Instructions Recorded Confirmed Type HYDROcodone/APAP 5-325MG [[place] 0.5 tab PO Q6H PRN 07/10/16 04/08/21 History 5-325] Doxazosin Mesylate [Cardura] 4 mg PO HS 04/22/20 04/08/21 History Apixaban [Eliquis] 5 mg PO BID #60 tab 04/25/20 04/08/21 Rx Metoprolol Succinate (ER) [Toprol 25 mg PO DAILY #30 tab.er.24h 04/25/20 04/08/21 Rx XL] Aspirin [Adult Low Dose Aspirin EC] 81 mg PO DAILY 11/29/20 04/08/21 History Finasteride [Proscar] 5 mg PO DAILY 11/29/20 04/08/21 History PARoxetine HCL [Paxil] 10 mg PO DAILY 11/29/20 04/08/21 History clonazePAM [KlonoPIN] 1 mg PO TID PRN 11/29/20 04/08/21 History Atorvastatin [Lipitor] 40 mg PO DAILY tab 01/11/21 04/08/21 Rx Ergocalciferol [Vitamin D2 (1250 1,250 mcg PO Q28D 04/08/21 04/08/21 History Mcg = 19970 Iu)] Mag Hydrox/Aluminum Hyd/Simeth 10 ml PO DAILY PRN 04/08/21 04/08/21 History [Mylanta Maximum Strength Liq] Allergies Allergy/AdvReac Type Severity Reaction Status Date / Time No Known Allergies Allergy Verified 04/08/21 15:39 Physical Exam Vitals: Vital Signs Temp Pulse Pulse Resp BP BP Pulse Ox 04/09/21 08:11 97.7 F 75 16 136/83 96 04/09/21 06:29 97 F L 61 16 107/75 97 04/08/21 22:22 77 16 123/72 97 04/08/21 19:17 70 16 123/72 95 04/08/21 13:20 98.0 F 66 16 180/107 96 Results Cardiac Enzymes 04/08/21 04/08/21 04/08/21 Range/Units 15:43 18:47 22:04 Troponin I <0.012 <0.012 <0.012 (0.000-0.034) ng/mL Current Medications Generic Name Dose Route Start Last Admin Trade Name Freq PRN Reason Stop Dose Admin Hydrocodone Bitart/Acetaminophen 1 each 04/08/21 19:03 04/08/21 19:16 Hydrocodone/Apap 5-325mg 1 Each Tab PO 1 each Q8HR PRN Administration Pain Apixaban 5 mg 04/08/21 21:00 04/08/21 22:20 Apixaban 5 Mg Tab PO 5 mg BID ALEJANDRO Administration Protocol Aspirin 325 mg 04/09/21 09:00 Aspirin 325 Mg Tab PO DAILY [facility] Clonazepam 0.5 mg 04/08/21 22:00 04/08/21 22:20 Clonazepam 0.5 Mg Tab PO 0.5 mg TID [facility] Administration Doxazosin Mesylate 4 mg 04/08/21 21:00 04/08/21 22:20 Doxazosin 4 Mg Tab PO 4 mg HS [facility] Administration Metoprolol Succinate 25 mg 04/09/21 09:00 Metoprolol Succinate (Er) 25 Mg Tab.Er.24h PO DAILY [facility] Nitroglycerin 0.4 mg 04/08/21 13:58 Nitroglycerin Sl Tabs 0.4 Mg Tab SUBLINGUAL Q5M PRN Chest Pain Paroxetine HCl 10 mg 04/09/21 09:00 Paroxetine 10 Mg Tab PO DAILY [facility]
[2021-04-09 15:16] LABS: Chol/HDL Ratio 2.73; LDL Cholesterol,Calculated 30.8 mg/dL (0.0-131.0); VLDL Calculation 21.2 mg/dL (5.00-40.00)
[2021-04-09 16:18] VITALS: BP 109/71; PULSE 85; TEMP 97.4
[2021-04-09] MEDS ORDERED: APIXABAN 5 MG TAB PO SCH (21:00)
--- NOTE | 2021-04-10 21:01 | DS ---
DISCHARGE SUMMARY DATE OF DISCHARGE: 04/09/2021 CHIEF COMPLAINT: Chest pain. HISTORY OF PRESENT ILLNESS AND PHYSICAL EXAMINATION: Details of this man's history and physical can be found in the initial workup. LABORATORY STUDIES: While he was in the hospital he had laboratory studies, details of which can be found in the laboratory section of his chart. COURSE IN THE HOSPITAL: After admission he was placed on bedrest, started on intravenous fluids and had serial EKGs and enzymes. He had no difficulty with pain or alteration of his vital signs. He was seen by Cardiology and evaluated, and it was felt that he could be discharged. He will return home on his usual activity, diet and medication. He will be followed up in several days. FINAL DIAGNOSIS: 1. Atypical chest pain. 2. History of hypertension. 3. Anxiety. 4. Third-degree burn of the right posterior lower leg. OPERATIONS: None. CONSULTATION: Cardiology. He is improved. MMODL / MAEVEN: [id number] /
--- NOTE | 2021-04-10 21:05 | HP ---
HISTORY AND PHYSICAL CHIEF COMPLAINT: Chest pain. HISTORY OF PRESENT ILLNESS: This gentleman presented to the emergency room with a history of chest pain. He is a very poor historian. He does not describe it well. He has had some cardiac problems in the past with chest pain and atrial fibrillation. In the emergency room, his laboratory studies were normal. He was admitted. REVIEW OF SYSTEMS: He has had no other complaints. He has had no syncope, diaphoresis, referred pain, aching in the jaw or arm, nausea, vomiting, diarrhea, abdominal pain, etc. Past medical history, family history, and personal and social histories reveal that HE CANNOT TAKE VASOTEC. He is on atorvastatin 40, Klonopin 1 mg t.i.d. p.r.n., Paxil 10 mg once a day, aspirin 81 mg a day, Proscar 5 mg a day, Vicodin 5 p.r.n. for a recent third-degree burn on the back of his right lower leg, metoprolol succinate 25 mg once a day, Eliquis 5 mg twice a day, vitamin D 50,000 units a month. Past medical history, family history, and personal and social histories are otherwise unremarkable. He used to smoke, but does not any longer. PHYSICAL EXAMINATION: Blood pressure is 132/80 with a pulse of 69, respirations of 14, and he is afebrile. In general he appeared to be well developed, well nourished, in no acute distress. Skin color is normal. Skin is warm and dry. Lymph nodes are not enlarged. Head, ears, eyes, nose, mouth and throat . Neck veins are not distended. The carotids are normal. Chest is clear. Cardiac exam is normal except for atrial fibrillation. The abdomen is slightly protuberant. The abdomen is soft and nontender without any visceromegaly or masses. Bowel sounds are present. Extremities are normal. Neurologically he is intact. The only other abnormality was the third-degree healing burn on the back of the right lower leg. He is admitted to the hospital with the diagnoses: 1. Chest pain. 2. History of hypertension. 3. Benign prostatic hypertrophy. 4. Depression. 5. Anxiety. 6. Third-degree burn on the back of the right lower leg. 7. Atrial fibrillation. PLAN: 1. Bedrest. 2. IV fluids. 3. Serial EKGs and enzymes. 4. Cardiology consult. MMODL / IJN: [id number] /
== END 2021-04-09 18:22 | disposition home or self-care (01) ==
LOC: EC 13:15 → 6NMEDSUR 13:58
PROVIDERS: ADMIT Family Medicine; ATTEND Family Medicine
DX: R07.89 Other chest pain (principal); I48.0 Paroxysmal atrial fibrillation; I10 Essential (primary) hypertension; E78.5 Hyperlipidemia, unspecified; D72.829 Elevated white blood cell count, unspecified; R42 Dizziness and giddiness; R10.13 Epigastric pain; N40.0 Benign prostatic hyperplasia without lower urinary tract symptoms; K57.90 Diverticulosis of intestine, part unspecified, without perforation or abscess without bleeding; K59.00 Constipation, unspecified; I77.810 Thoracic aortic ectasia; I35.1 Nonrheumatic aortic (valve) insufficiency; F41.9 Anxiety disorder, unspecified; F32.9 Major depressive disorder, single episode, unspecified; T24.331D Burn of third degree of right lower leg, subsequent encounter; X08.8XXD Exposure to other specified smoke, fire and flames, subsequent encounter; Z79.82 Long term (current) use of aspirin; Z79.01 Long term (current) use of anticoagulants; Z79.899 Other long term (current) drug therapy; Z88.8 Allergy status to other drugs, medicaments and biological substances; Z90.79 Acquired absence of other genital organ(s); Z87.828 Personal history of other (healed) physical injury and trauma; Z98.890 Other specified postprocedural states; Z87.891 Personal history of nicotine dependence; Z84.2 Family history of other diseases of the genitourinary system
CPT/HCPCS: 99285; 36415; 93005 ×2; 80061; 83605; 84484; G0378 ×2; J2785

== ENCOUNTER 2021-07-07 11:30 | Observation (INO) | payer MEDICARE ==
[2021-07-07] MEDS ORDERED: SODIUM CHLORIDE 0.9% 1,000 ML IV STA (12:08)
[2021-07-07 12:37] LABS: Basophils # (A) 0.1 k/uL (0-0.2); Basophils % (A) 1 %; Eosinophils % (A) 0 %; HCT 43.3 % (39.0-53.0); HGB 14.6 gm/dL (13.0-17.5); Lymphocytes # (A) 0.9 k/uL (1.0-4.8); Lymphocytes % (A) 13 %; MCHC 33.8 g/dL (31.0-37.0); Mean Platelet Volume 7.9; Monocytes # (A) 0.6 k/uL (0-1.0); Monocytes % (A) 9 %; Neutrophils # (A) 5.4 k/uL (1.3-7.7); Neutrophils % (A) 75 %; Platelet Count 157 k/uL (150-450); RBC 4.71 m/uL (4.30-5.90); RDW 12.4 % (11.5-15.5); WBC 7.2 k/uL (3.8-10.6)
[2021-07-07 12:49] LABS: Albumin 3.8 g/dL (3.5-5.0); Calcium 8.7 mg/dL (8.4-10.2); Magnesium 1.9 mg/dL (1.6-2.3); Potassium 4.1 mmol/L (3.5-5.1); Total Bilirubin 0.8 mg/dL (0.2-1.3); Total Protein 6.6 g/dL (6.3-8.2)
[2021-07-07 12:51] LABS: Partial Thromboplastin Time 25.2 sec (22.0-30.0); Prothrombin Time 10.6 sec (9.0-12.0)
[2021-07-07 12:53] LABS: Appearance,Urine Clear (Clear); Bilirubin,Urine Negative (Negative); Blood,Urine Negative (Negative); Color,Urine Light Yellow; Glucose,Urine (UA) Negative (Negative); Ketones,Urine Negative (Negative); Leukocyte Esterase,Urine Negative (Negative); Nitrite,Urine Negative (Negative); Protein,Urine Negative (Negative); Specific Gravity,Urine 1.004 (1.001-1.035); Urobilinogen,Urine <2.0 mg/dL (<2.0)
--- NOTE | 2021-07-07 13:08 | XR ---
EXAMINATION TYPE: XR chest 2V DATE OF EXAM: 07/07/2021 COMPARISON: 04/08/2021 HISTORY: 71 years Male. STUDY INDICATION GIVEN: Weakness . TECHNIQUE: Frontal lateral chest radiographs IMPRESSION: Bibasilar left greater than right opacities may be on the basis of atelectasis and/or pneumonic infil trates. Mild interstitial edema. No cardiomegaly, pneumothorax or significant effusion. Degenerative changes are noted in the spine. No acute osseous abnormalities.
[2021-07-07] MEDS ORDERED: SODIUM CHLORIDE 0.9% 50 ML IVPB ONE (14:00)
[2021-07-07] MEDS ORDERED: BAMLANIVIMAB (EUA) 700 MG, ETESEVIMAB (EUA) 1,400 MG in SODIUM CHLORIDE 0.9% 50 ML IVPB ONE (14:30)
[2021-07-07] MEDS ORDERED: ACETAMINOPHEN TAB 325 MG TAB PO PRN (14:34)
[2021-07-07] MEDS ORDERED: NALOXONE 0.4 MG/ML 1 ML VIAL IV PRN (14:34)
[2021-07-07] MEDS ORDERED: dexAMETHasone 2 MG TAB PO STA (14:36)
--- NOTE | 2021-07-07 14:40 | ED ---
General Adult HPI - General Chief complaint: Weakness Stated complaint: Weakness Time Seen by Provider: 07/07/21 11:43 Source: patient, RN notes reviewed, old records reviewed Mode of arrival: EMS - History of Present Illness Initial comments: 71-year-old male who had presented for evaluation generalized weakness and cough. Patient did state he felt lightheaded and felt like he might pass out. He states his symptoms have really only been present today. He denies fever. He denies vomiting or diarrhea. He denies chest pain. No palpitations. - Related Data Home Medications Medication Instructions Recorded Confirmed HYDROcodone/APAP 5-325MG [[place] 1 tab PO QID PRN 07/10/16 07/07/21 5-325] Doxazosin Mesylate [Cardura] 4 mg PO HS 04/22/20 07/07/21 Aspirin [Adult Low Dose Aspirin EC] 81 mg PO DAILY 11/29/20 07/07/21 Finasteride [Proscar] 5 mg PO DAILY 11/29/20 07/07/21 clonazePAM [KlonoPIN] 1 mg PO TID PRN 11/29/20 07/07/21 Ergocalciferol [Vitamin D2 (1250 1,250 mcg PO Q28D 04/08/21 07/07/21 Mcg = 87965 Iu)] Acetaminophen Tab [Tylenol Tab] 1,000 mg PO Q6HR PRN 07/07/21 07/07/21 Atorvastatin [Lipitor] 40 mg PO HS 07/07/21 07/07/21 Melatonin 5 mg PO HS 07/07/21 07/07/21 Previous Rx's Medication Instructions Recorded Apixaban [Eliquis] 5 mg PO BID #60 tab 04/25/20 Metoprolol Succinate (ER) [Toprol 25 mg PO DAILY #30 tab.er.24h 04/25/20 XL] Allergies Allergy/AdvReac Type Severity Reaction Status Date / Time No Known Allergies Allergy Verified 07/07/21 13:17 Review of Systems ROS Statement: Those systems with pertinent positive or pertinent negative responses have been documented in the HPI. ROS Other: All systems not noted in ROS Statement are negative. Past Medical History Past Medical History: Atrial Fibrillation, Hypertension Additional Past Medical History / Comment(s): R lower leg burn/pain being seen at [facility], diverticular disease, constipation, BPH, occasional back pain History of Any Multi-Drug Resistant Organisms: None Reported Past Surgical History: Hernia Repair, Tonsillectomy Additional Past Surgical History / Comment(s): L facial/L eye injury from fall from scaffolding with surgical repair, L inguinal hernia repair/L orchiectomy, colonoscopy Past Anesthesia/Blood Transfusion Reactions: No Reported Reaction Additional Past Anesthesia/Blood Transfusion Reaction / Comment(s): . Past Psychological History: No Psychological Hx Reported Smoking Status: Former smoker Past Alcohol Use History: None Reported Past Drug Use History: None Reported - Past Family History Mother Family Medical History: No Reported History Additional Family Medical History / Comment(s): Mother fractured her ankle and had problems with it all her life. Father History Unknown: Yes Family Medical History: Prostate Disorder General Exam General appearance: alert, in no apparent distress Head exam: Present: atraumatic, normocephalic ENT exam: Present: normal exam Neck exam: Present: normal inspection. Absent: tenderness, meningismus Respiratory exam: Present: rhonchi. Absent: respiratory distress, wheezes Cardiovascular Exam: Present: regular rate, normal rhythm GI/Abdominal exam: Present: soft. Absent: distended, tenderness, guarding Extremities exam: Present: normal inspection, normal capillary refill. Absent: pedal edema Neurological exam: Present: alert, oriented X3, CN II-XII intact. Absent: motor sensory deficit Psychiatric exam: Present: normal affect, normal mood Skin exam: Present: warm, dry, intact. Absent: cyanosis, diaphoretic Course Vital Signs 07/07/21 07/07/21 11:43 14:30 Temperature 99 F Pulse Rate 91 87 Respiratory 16 17 Rate Blood Pressure 95/81 120/81 O2 Sat by Pulse 94 L 98 Oximetry EKG Findings - EKG Comments: EKG Findings:: EKG: Sinus tachycardia rate of 114, OR interval 136, QRS duration 84, QTC 454 left anterior fascicular block no ST segment elevation. Medical Decision Making - Medical Decision Making 71-year-old male who presents for evaluation of fatigue, cough, near syncope. Patient does test positive for coronavirus. He was previously vaccinated. He has a normal CBC, normal CMP, negative troponin, negative urinalysis. Patient still feels somewhat lightheaded and reevaluation. He will be kept for IV fluids. He's given monoclonal antibodies in the emergency department. This was given prior to the disposition of observation. Additionally is given Decadron. Case discussed with Dr. Man who will admit. - Lab Data Result diagrams: 07/07/21 12:27 07/07/21 12: Lab Results 07/07/21 07/07/21 07/07/21 Range/Units 12:27 12: 12:27 WBC 7.2 (3.8-10.6) k/uL RBC 4.71 (4.30-5.90) m/uL Hgb 14.6 (13.0-17.5) gm/dL Hct 43.3 (39.0-53.0) % MCV 92.0 (80.0-100.0) fL MCH 31.0 (25.0-35.0) pg MCHC 33.8 (31.0-37.0) g/dL RDW 12.4 (11.5-15.5) % Plt Count 157 (150-450) k/uL MPV 7.9 Neutrophils % 75 % Lymphocytes % 13 % Monocytes % 9 % Eosinophils % 0 % Basophils % 1 % Neutrophils # 5.4 (1.3-7.7) k/uL Lymphocytes # 0.9 L (1.0-4.8) k/uL Monocytes # 0.6 (0-1.0) k/uL Eosinophils # 0.0 (0-0.7) k/uL Basophils # 0.1 (0-0.2) k/uL PT 10.6 (9.0-12.0) sec INR 1.0 (<1.2) APTT 25.2 (22.0-30.0) sec D-Dimer 0.34 (<0.60) mg/L FEU Sodium (137-145) mmol/L Potassium (3.5-5.1) mmol/L Chloride (98-107) mmol/L Carbon Dioxide (22-30) mmol/L Anion Gap mmol/L BUN (9-20) mg/dL Creatinine (0.66-1.25) mg/dL Est GFR (CKD-EPI)AfAm (>60 ml/min/1.73 sqM) Est GFR (CKD-EPI)NonAf (>60 ml/min/1.73 sqM) Glucose (74-99) mg/dL Plasma Lactic Acid Jeramie (0.7-2.0) mmol/L Calcium (8.4-10.2) mg/dL Magnesium (1.6-2.3) mg/dL Total Bilirubin (0.2-1.3) mg/dL AST (17-59) U/L ALT (4-49) U/L Alkaline Phosphatase (38-126) U/L Troponin I (0.000-0.034) ng/mL Total Protein (6.3-8.2) g/dL Albumin (3.5-5.0) g/dL Urine Color Urine Appearance (Clear) Urine pH (5.0-8.0) Ur Specific [place] (1.001-1.035) Urine Protein (Negative) Urine Glucose (UA) (Negative) Urine Ketones (Negative) Urine Blood (Negative) Urine Nitrite (Negative) Urine Bilirubin (Negative) Urine Urobilinogen (<2.0) mg/dL Ur Leukocyte Esterase (Negative) Coronavirus (PCR) Detected A (Not Detectd) 07/07/21 07/07/21 07/07/21 Range/Units 12:27 12:27 12:27 WBC (3.8-10.6) k/uL RBC (4.30-5.90) m/uL Hgb (13.0-17.5) gm/dL Hct (39.0-53.0) % MCV (80.0-100.0) fL MCH (25.0-35.0) pg MCHC (31.0-37.0) g/dL RDW (11.5-15.5) % Plt Count (150-450) k/uL MPV Neutrophils % % Lymphocytes % % Monocytes % % Eosinophils % % Basophils % % Neutrophils # (1.3-7.7) k/uL Lymphocytes # (1.0-4.8) k/uL Monocytes # (0-1.0) k/uL Eosinophils # (0-0.7) k/uL Basophils # (0-0.2) k/uL PT (9.0-12.0) sec INR (<1.2) APTT (22.0-30.0) sec D-Dimer (<0.60) mg/L FEU Sodium 136 L (137-145) mmol/L Potassium 4.1 (3.5-5.1) mmol/L Chloride 106 (98-107) mmol/L Carbon Dioxide 20 L (22-30) mmol/L Anion Gap 10 mmol/L BUN 15 (9-20) mg/dL Creatinine 1.20 (0.66-1.25) mg/dL Est GFR (CKD-EPI)AfAm 69 (>60 ml/min/1.73 sqM) Est GFR (CKD-EPI)NonAf 60 (>60 ml/min/1.73 sqM) Glucose 105 H (74-99) mg/dL Plasma Lactic Acid Jeramie 1.2 (0.7-2.0) mmol/L Calcium 8.7 (8.4-10.2) mg/dL Magnesium 1.9 (1.6-2.3) mg/dL Total Bilirubin 0.8 (0.2-1.3) mg/dL AST 29 (17-59) U/L ALT 30 (4-49) U/L Alkaline Phosphatase 67 (38-126) U/L Troponin I (0.000-0.034) ng/mL Total Protein 6.6 (6.3-8.2) g/dL Albumin 3.8 (3.5-5.0) g/dL Urine Color Light Yellow Urine Appearance Clear (Clear) Urine pH 7.0 (5.0-8.0) Ur Specific [place] 1.004 (1.001-1.035) Urine Protein Negative (Negative) Urine Glucose (UA) Negative (Negative) Urine Ketones Negative (Negative) Urine Blood Negative (Negative) Urine Nitrite Negative (Negative) Urine Bilirubin Negative (Negative) Urine Urobilinogen <2.0 (<2.0) mg/dL Ur Leukocyte Esterase Negative (Negative) Coronavirus (PCR) (Not Detectd) 07/07/21 Range/Units 12:27 WBC (3.8-10.6) k/uL RBC (4.30-5.90) m/uL Hgb (13.0-17.5) gm/dL Hct (39.0-53.0) % MCV (80.0-100.0) fL MCH (25.0-35.0) pg MCHC (31.0-37.0) g/dL RDW (11.5-15.5) % Plt Count (150-450) k/uL MPV Neutrophils % % Lymphocytes % % Monocytes % % Eosinophils % % Basophils % % Neutrophils # (1.3-7.7) k/uL Lymphocytes # (1.0-4.8) k/uL Monocytes # (0-1.0) k/uL Eosinophils # (0-0.7) k/uL Basophils # (0-0.2) k/uL PT (9.0-12.0) sec INR (<1.2) APTT (22.0-30.0) sec D-Dimer (<0.60) mg/L FEU Sodium (137-145) mmol/L Potassium (3.5-5.1) mmol/L Chloride (98-107) mmol/L Carbon Dioxide (22-30) mmol/L Anion Gap mmol/L BUN (9-20) mg/dL Creatinine (0.66-1.25) mg/dL Est GFR (CKD-EPI)AfAm (>60 ml/min/1.73 sqM) Est GFR (CKD-EPI)NonAf (>60 ml/min/1.73 sqM) Glucose (74-99) mg/dL Plasma Lactic Acid Jeramie (0.7-2.0) mmol/L Calcium (8.4-10.2) mg/dL Magnesium (1.6-2.3) mg/dL Total Bilirubin (0.2-1.3) mg/dL AST (17-59) U/L ALT (4-49) U/L Alkaline Phosphatase (38-126) U/L Troponin I <0.012 (0.000-0.034) ng/mL Total Protein (6.3-8.2) g/dL Albumin (3.5-5.0) g/dL Urine Color Urine Appearance (Clear) Urine pH (5.0-8.0) Ur Specific [place] (1.001-1.035) Urine Protein (Negative) Urine Glucose (UA) (Negative) Urine Ketones (Negative) Urine Blood (Negative) Urine Nitrite (Negative) Urine Bilirubin (Negative) Urine Urobilinogen (<2.0) mg/dL Ur Leukocyte Esterase (Negative) Coronavirus (PCR) (Not Detectd) Disposition Clinical Impression: Pre-syncope, Dehydration, COVID-19 Disposition: ADMITTED IP TO THIS [facility] Condition: Stable Is patient prescribed a controlled substance at d/c from ED?: No Referrals: [place],Eliseo G, MD [Primary Care Provider] - 1-2 days Decision to Admit Reason: Admit from EC Decision Date: 07/07/21 Decision Time: 14:39
[2021-07-07] MEDS: SODIUM CHLORIDE 0.9% 1,000 ML IV SCH (15:18)
[2021-07-07] MEDS ORDERED: clonazePAM 1 MG TAB PO PRN (22:40)
[2021-07-07] MEDS ORDERED: HYDROcodone/APAP 5-325MG 1 EACH TAB PO PRN (22:40)
[2021-07-07] MEDS: ATORVASTATIN 40 MG TAB PO SCH (23:33)
[2021-07-07] MEDS: DOXAZOSIN 4 MG TAB PO SCH (23:33)
[2021-07-07] MEDS: MELATONIN 5 MG TABLET PO SCH (23:33)
[2021-07-08] MEDS: SODIUM CHLORIDE 0.9% 1,000 ML IV SCH ×2 (04:05→16:16)
[2021-07-08] MEDS: APIXABAN 5 MG TAB PO SCH ×2 (07:40→20:48)
[2021-07-08] MEDS: METOPROLOL SUCCINATE (ER) 25 MG TAB.ER.24H PO SCH (07:41)
[2021-07-08] MEDS: ASPIRIN 81 MG PO SCH (07:41)
[2021-07-08] MEDS: FINASTERIDE 5 MG TAB PO SCH (07:41)
[2021-07-08] MEDS: dexAMETHasone 2 MG TAB PO SCH (07:41)
--- NOTE | 2021-07-08 19:19 | HP ---
HISTORY AND PHYSICAL CHIEF COMPLAINT: Shortness of breath and dizziness. HISTORY OF PRESENT ILLNESS: This is another admission for this 71-year-old white male who is a poor historian. He has a long-standing history of hypertension. He has some mental disability and he has been vaccinated for COVID. He presented to the emergency room stating that he was feeling dizzy and weak. He was COVID positive. Chest x-ray was unremarkable. He has a slight cough. He had no fever or chills. REVIEW OF SYSTEMS: Otherwise normal. He denies any chest pain, hemoptysis, abdominal pain, nausea, vomiting, diarrhea, melena, hematochezia, urinary complaints, etc. Past medical history, family history, and personal and social histories reveal that he is ALLERGIC to ENALAPRIL WITH HYDROCHLOROTHIAZIDE. He is on doxazosin 4 mg at night, Proscar 5 mg once a day, atorvastatin 40 mg once a day, Klonopin 1 mg t.i.d. for anxiety, Paxil 10 mg once a day, aspirin once a day, Vicodin 5 q.6 p.r.n., Toprol succinate ER 25 mg once a day, Eliquis 5 mg twice a day for atrial fibrillation, and vitamin D. Remainder of his history is unremarkable. He does have an element of renal failure. PHYSICAL EXAMINATION: He is afebrile. Blood pressure 130/75 with a pulse of 100. In general he appeared to be well developed, well nourished, in no acute distress. He was awake and alert. Skin was dry. Head, ears, eyes, nose, mouth and throat were normal. Neck veins were not distended. Thyroid is not enlarged. Neck is supple. The chest is clear. There are no significant rales. The cardiac exam is normal. The abdomen is soft and nontender. Extremities are normal. He has a healing burn on the back of his right lower leg. IMPRESSION: 1. COVID-19. 2. History of hypertension. 3. History of depression. 4. History of anxiety. 5. Recent burn on the posterior right lower leg. 6. Contusion of the left hand. PLAN: 1. Bedrest. 2. IV fluids. 3. Monitor his respiratory function and pulse ox. MMODL / IJN: [id number] /
--- NOTE | 2021-07-08 19:22 | PN ---
PROGRESS NOTE DATE OF SERVICE: 07/08/2021 CHIEF COMPLAINT: COVID. HISTORY OF PRESENT ILLNESS: This gentleman is doing well. He has not been febrile. He is not short of breath. PHYSICAL EXAMINATION: Chest is quite clear. Cardiac exam demonstrates sinus rhythm. The abdomen is soft and nontender. IMPRESSION: 1. COVID-19. 2. Hypertension. PLAN: Continue to monitor. MMODL / IJN: [id number] /
[2021-07-08] MEDS: ATORVASTATIN 40 MG TAB PO SCH (20:48)
[2021-07-08] MEDS: DOXAZOSIN 4 MG TAB PO SCH (20:48)
[2021-07-08] MEDS: MELATONIN 5 MG TABLET PO SCH (20:48)
[2021-07-08 21:39] VITALS: TEMP 97.7
[2021-07-09 08:10] VITALS: BP 117/83; PULSE 61; RESP 20
[2021-07-09] MEDS: FINASTERIDE 5 MG TAB PO SCH (08:20)
[2021-07-09] MEDS: ASPIRIN 81 MG PO SCH (08:20)
[2021-07-09] MEDS: dexAMETHasone 2 MG TAB PO SCH (08:20)
[2021-07-09] MEDS: APIXABAN 5 MG TAB PO SCH (08:20)
[2021-07-09] MEDS: METOPROLOL SUCCINATE (ER) 25 MG TAB.ER.24H PO SCH (08:20)
[2021-07-09] MEDS: SODIUM CHLORIDE 0.9% 1,000 ML IV SCH (08:24)
[2021-07-09 09:59] LABS: Creatine Kinase 95 U/L (35-257)
--- NOTE | 2021-07-09 20:31 | DS ---
DISCHARGE SUMMARY CHIEF COMPLAINT: Weakness and Covid-19. HISTORY OF PRESENT ILLNESS AND PHYSICAL EXAM: Details of this man's physical can be found in the initial workup. LABORATORY STUDIES: White he was in the hospital, he had laboratory studies, details of which can be found in the laboratory section of his chart. COURSE IN THE HOSPITAL: After admission, he was placed on bedrest and started on intravenous fluids and he had no further problems with shortness of breath, chills, fever, etc. Laboratory studies were normal. Vital signs were normal. It was felt he could be discharged on July 09 and go home on his usual activity, diet and medication and he will be followed up in several days. FINAL DIAGNOSES: 1. Generalized weakness. 2. Covid-19. 3. Hypertension. 4. Anxiety. OPERATIONS: None. CONSULTATIONS: None. He is improved. SREEKANTH / WAI: [id number] /
[2021-07-17] MEDS ORDERED: ERGOCALCIFEROL 1,250 MCG (50,000 IU) CAPSULE PO SCH (09:00)
== END 2021-07-09 12:47 | disposition home or self-care (01) ==
LOC: EC 11:30 → 6NMEDSUR 14:34
PROVIDERS: ADMIT Family Medicine; ATTEND Family Medicine
DX: U07.1 COVID-19 (principal); I10 Essential (primary) hypertension; F41.9 Anxiety disorder, unspecified; S60.222A Contusion of left hand, initial encounter; I48.91 Unspecified atrial fibrillation; E86.0 Dehydration; T24.031A Burn of unspecified degree of right lower leg, initial encounter; F32.A Depression, unspecified; K57.90 Diverticulosis of intestine, part unspecified, without perforation or abscess without bleeding; K40.90 Unilateral inguinal hernia, without obstruction or gangrene, not specified as recurrent; N40.0 Benign prostatic hyperplasia without lower urinary tract symptoms; M54.9 Dorsalgia, unspecified; Z79.82 Long term (current) use of aspirin; Z79.899 Other long term (current) drug therapy; Z79.01 Long term (current) use of anticoagulants; Z87.891 Personal history of nicotine dependence; Z88.8 Allergy status to other drugs, medicaments and biological substances
CPT/HCPCS: 99285; 96361 ×2; 96360; 36415; 93005; 85379; 80053; 84443; 82607; 82550; 82746; 83605 ×2; 83735; 84484; 85025; 85610; 85730; 81003; 87040; 83036; 84145; 87635; 71046; G0378 ×3; M0245; S0138 ×2; J8540 ×3; J3490

== ENCOUNTER → 2023-09-03 | Outpatient (CLI) | payer MEDICARE ==
[2023-09-03 11:46] LABS: ALT 52 U/L (10-49); AST 36 U/L (14-35); Chol/HDL Ratio 2.15 Ratio; LDL Cholesterol,Calculated 28.6 mg/dL (0.0-131.0)
== END | disposition home or self-care (01) ==
LOC: LABWHC1 08:06
PROVIDERS: ATTEND Internal Medicine Cardiovascular Disease
DX: E78.2 Mixed hyperlipidemia (principal)
CPT/HCPCS: 36415; 80061; 84450; 84460

== ENCOUNTER → 2024-08-22 | Outpatient (CLI) | payer MEDICARE ==
[2024-08-22 16:41] LABS: African American GFR (CKD) 69 (>60 ml/min/1.73 sqM); Blood Urea Nitrogen 25 mg/dL (9-20); Non-African American GFR(CKD) 60 (>60 ml/min/1.73 sqM)
--- NOTE | 2024-08-22 17:56 | CT ---
EXAMINATION TYPE: CT abdomen w con DATE OF EXAM: 08/22/2024 COMPARISON: Prior CT abdomen and pelvis April 23, 2020 CLINICAL INDICATION: Male, 74 years old with history of R10.9 FLANK PAIN R31.9 HEMATURIA; PHH, flank pain, hematuria TECHNIQUE: Performed with Oral Contrast and with IV Contrast, patient injected with 100 mL of Isovue 300. CT DLP: 1831.6 mGycm Automated exposure control for dose reduction was used. FINDINGS: LUNG BASES: No significant abnormality is appreciated. LIVER/GB: Liver is heterogeneously hypodense consistent with diffuse fatty infiltrative hepatocellula r disease. PANCREAS: No significant abnormality is seen. SPLEEN: No significant abnormality is seen. ADRENALS: No significant abnormality is seen. KIDNEYS: Symmetric cortical medullary uptake and excretion without hydronephrosis seen bilaterally. S mall extrarenal pelvis on the left again seen. 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 BOWEL: Oral contrast has not reached level of the terminal ileum. No abnormal small or large bowel d ilatation is seen. A few colonic diverticula. No CT evidence for acute diverticulitis. LYMPH NODES: No significant abnormality is seen. OSSEOUS STRUCTURES: No significant abnormality is seen. FREE AIR: No free air is visualized. OTHER: No suspicious incidental finding. IMPRESSION: No acute findings seen to account for patient's symptoms. If symptoms of hematuria persis ts further investigation with CT urogram would be warranted. [facility], , 08/22/2024 5:54 PM
== END | disposition home or self-care (01) ==
LOC: RADCTMAIN 15:56
PROVIDERS: ATTEND Family Medicine
DX: R10.9 Unspecified abdominal pain (principal); R31.9 Hematuria, unspecified
CPT/HCPCS: 82565; 84520; 74160; 36415; Q9967